=== PATIENT | male | born 1960 | race Hispanic/Latino ===

== ENCOUNTER 2019-10-01 13:38 | Inpatient (IN) | payer MEDICARE ==
--- NOTE | 2019-10-01 13:50 | Event Note ---
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 This initial assessment/diagnostic orders/clinical plan/treatment(s) is/are subject to change based on patients health status, clinical progression and re- assessment by fellow clinical providers in the ED. Further treatment and workup at subsequent clinical providers discretion. Patient/guardian urged not to elope from the ED as their condition may be serious if not clinically assessed and managed. Initial orders include:
[2019-10-01] MEDS ORDERED: METOPROLOL TARTRATE 5 MG/5 ML INJ IV ONE (13:58)
[2019-10-01] MEDS ORDERED: ASPIRIN 81 MG TAB CHEW PO ONE (13:58)
[2019-10-01 14:26] LABS: Basophils # (Auto) 0.1 K/mm3 (0.0-0.1); Eosinophils # (Auto) 0.1 K/mm3 (0.0-0.4); Eosinophils % (Auto) 0.8 % (0.0-4.3); Monocytes # (Auto) 0.7 K/mm3 (0.0-0.8); Monocytes % (Auto) 9.8 % (0.0-7.3)
--- NOTE | 2019-10-01 14:30 | XRay Report ---
CHEST 1 VIEW INDICATION: chest discomfort. COMPARISON: None available. FINDINGS: Support devices: None. Heart: Enlarged. Pulmonary vasculature: Central vascular congestion. Lungs/Pleura: Widening of the left pleural space and mild opacification of the left costophrenic angl e. The left upper lobe is clear and the right lung is clear. Additional findings: Median sternotomy wires and mediastinal surgical clips. IMPRESSION: 1. Cardiomegaly and pulmonary venous hypertension. 2. No pulmonary edema. 3. No pneumonia. 4. Left pleural effusion versus scarring. Recommend PA and lateral chest for further evaluation 5. Status post CABG. Signer Name: Kodak Sen MD Signed: 10/01/2019 2:25 PM Workstation Name: [id number]
[2019-10-01 14:31] LABS: Basophils % (Auto) 0.5 % (0.0-1.8); Hematocrit 40.2 % (35.5-45.6); Hemoglobin 14.3 gm/dl (11.8-15.2); Lymphocytes % (Auto) 14.4 % (13.4-35.0); Mean Corpuscular HGB Conc 36 % (32-34); Mean Corpuscular Volume 102 fl (84-94); Red Blood Count 3.94 M/mm3 (3.65-5.03); Red Cell Distribution Width 16.3 % (13.2-15.2)
[2019-10-01 14:33] LABS: Platelet Count 292 K/mm3 (140-440)
[2019-10-01 15:31] LABS: INR 1.17 (0.87-1.13)
[2019-10-01 15:31] LABS: Albumin 2.3 g/dL (3.9-5); Calcium 7.7 mg/dL (8.4-10.2)
--- NOTE | 2019-10-01 15:33 | Emergency Department Report ---
ED Palpitations HPI - General Chief Complaint: Arrhythmia/Palpitations Stated Complaint: SENT BY PCP/SOB Time Seen by Provider: 10/01/19 13:42 Source: patient Mode of arrival: Ambulatory Limitations: No Limitations - History of Present Illness Initial Comments: Patient sent from his [facility] office, Dr. Dickerson, where he had an abnormal EKG. Reports some dyspnea on exertion today. Denies pain. Reports he went to the [facility] today for routine testing. MD Complaint: palpitations -: Gradual, days(s) (1) Context: occured during rest Arrythmia History: other (Reports hx of a rapid heart beat) Associated Symptoms: shortness of breath. denies: chest pain, syncope, near- syncope, nausea/vomiting, anxiety, diaphoresis, cough, parasthesias, feeling of impending doom, muscle cramps - Related Data Home Medications Medication Instructions Recorded Confirmed Last Taken Aspirin 81 mg PO DAILY 10/01/19 10/01/19 Unknown Bisoprolol/Hctz 25 mg PO DAILY 10/01/19 10/01/19 Unknown Lasix TAB 40 mg PO BID 10/01/19 10/01/19 Unknown Metolazone 5 mg PO DAILY 10/01/19 10/01/19 Unknown Plavix 75 mg PO DAILY 10/01/19 10/01/19 Unknown Potassium Chloride 20 meq PO BID 10/01/19 10/01/19 Unknown Prednisone 20 mg PO DAILY 10/01/19 10/01/19 Unknown Verapamil 120 mg PO BID 10/01/19 10/01/19 Unknown Allergies Allergy/AdvReac Type Severity Reaction Status Date / Time No Known Allergies Allergy Verified 10/01/19 13:39 ED Review of Systems ROS: Stated complaint: SENT BY PCP/SOB Other details as noted in HPI Other: GENERAL: No weight change, fatigue, fever, chills, or night sweats SKIN: No changes in skin or hair, no itching, no rashes, no jaundice HEAD: No trauma EYES: No blurriness, tearing, itching, acute visual loss, conjunctival discoloration, or scleral icterus EARS: No hearing loss, tinnitus, vertigo, or earache NOSE: No rhinorrhea, stuffiness, sneezing, itching, or epistaxis MOUTH: No bleeding gums, hoarseness, sore throat, or swelling CARDIAC: Palpitations. No new murmur, chest pain, dyspnea on exertion, orthopnea, PND, or edema RESPIRATORY: Shortness of breath. No wheeze, cough, sputum production, hemoptysis GI: No abdominal pain, nausea, vomiting, dysphagia, diarrhea, constipation, hematemesis, melena, hematochezia URINARY: No frequency, urgency, polyuria, dysuria, hematuria, or incontinence MUSCULOSKELETAL: No muscle weakness, joint stiffness, decrease in range of motion, redness, swelling NEUROLOGIC: No headache, syncope, loss of sensation, numbness, tingling, tremors, weakness, paralysis, seizures HEMATOLOGIC: No anemia, easy bruising, bleeding, petechiae, or purpura ENDOCRINE: No hot or cold intolerance, sweating, polyuria, polydipsia or, polyphagia no thyroid problems PSYCHIATRIC: No change in mood, no anxiety, no depression ED Past Medical Hx - Past Medical History Hx Heart Attack/AMI: Yes Hx Congestive Heart Failure: Yes Hx Diabetes: No Hx Pulmonary Embolism: No Hx Sickle Cell Disease: No Hx Asthma: No Hx COPD: No Hx Tuberculosis: No Hx HIV: No Additional medical history: MVP - Surgical History Hx Open Heart Surgery: Yes - Social History Smoking Status: Current Every Day Smoker Substance Use Type: Marijuana - Medications Home Medications: Home Medications Medication Instructions Recorded Confirmed Last Taken Type Aspirin 81 mg PO DAILY 10/01/19 10/01/19 Unknown History Bisoprolol/Hctz 25 mg PO DAILY 10/01/19 10/01/19 Unknown History Lasix TAB 40 mg PO BID 10/01/19 10/01/19 Unknown History Metolazone 5 mg PO DAILY 10/01/19 10/01/19 Unknown History Plavix 75 mg PO DAILY 10/01/19 10/01/19 Unknown History Potassium Chloride 20 meq PO BID 10/01/19 10/01/19 Unknown History Prednisone 20 mg PO DAILY 10/01/19 10/01/19 Unknown History Verapamil 120 mg PO BID 10/01/19 10/01/19 Unknown History ED Physical Exam - General Limitations: No Limitations - Other Other exam information: GENERAL: Patient in no acute distress HEAD: Normocephalic, atraumatic EYES: PERRLA, EOM intact, no scleral icterus, no conjunctival hemorrhage, visual mcrae and acuity wnl NOSE: No tenderness, discharge, sinus tenderness MOUTH: No erythema, bleeding, exudate HEART: Tachycardia irregular irregular, no murmur, S1-S2 are auscultated, no edema, pulses are symmetric LUNGS: Mild bibasilar rales. No respiratory distress. Bilateral breath sounds, No tachypnea, No retractions, No wheezing, rhonchi ABDOMEN: Mild abdominal distention. Normal bowel sounds, abdomen soft, no tenderness, no rebound, no guarding, no masses, no CVA tenderness MUSCULOSKELETAL: Normal joint range of motion, no redness, no swelling, no tenderness NEUROLOGIC: GCS 15, Alert and Oriented x3, Cranial nerves intact, normal sensation, normal strength, no cerebellar deficit, NIHSS 0 SKIN: Skin is warm and dry, no wounds, no rashes ED Course Vital Signs 10/01/19 10/01/19 10/01/19 13:43 14:08 14:23 Temperature 97.5 F L Pulse Rate 52 L 130 H 100 H Respiratory 16 16 Rate Blood Pressure 120/28 Blood Pressure 116/86 [Left] O2 Sat by Pulse 99 98 Oximetry 10/01/19 15:53 Temperature Pulse Rate 99 H Respiratory 16 Rate Blood Pressure Blood Pressure 112/71 [Left] O2 Sat by Pulse 96 Oximetry ED Medical Decision Making - Lab Data Result diagrams: 10/01/19 14:00 10/01/19 14:00 Laboratory Results - last 24 hr 10/01/19 10/01/19 10/01/19 14:00 14:00 14:00 WBC 7.2 RBC 3.94 Hgb 14.3 Hct 40.2 MCV 102 H MCH 36 H MCHC 36 H RDW 16.3 H Plt Count 292 Lymph % (Auto) 14.4 [place] % (Auto) 9.8 H Eos % (Auto) 0.8 Baso % (Auto) 0.5 Lymph # 1.0 L [place] # 0.7 Eos # 0.1 Baso # 0.1 Seg Neutrophils % 74.3 H Seg Neutrophils # 5.6 PT INR APTT D-Dimer Sodium 129 L Potassium 3.0 L Chloride 91.4 L Carbon Dioxide 22 Anion Gap 19 BUN 14 Creatinine 1.5 Estimated GFR 48 BUN/Creatinine Ratio 9 Glucose 108 H Calcium 7.7 L Magnesium 1.40 L Total Bilirubin 2.20 H AST 44 H ALT 13 Alkaline Phosphatase 74 Troponin T < 0.010 NT-Pro-B Natriuret Pep Total Protein 7.8 Albumin 2.3 L Albumin/Globulin Ratio 0.4 10/01/19 10/01/19 14:43 14:47 WBC RBC Hgb Hct MCV MCH MCHC RDW Plt Count Lymph % (Auto) [place] % (Auto) Eos % (Auto) Baso % (Auto) Lymph # [place] # Eos # Baso # Seg Neutrophils % Seg Neutrophils # PT 15.1 H INR 1.17 H APTT 23.4 L D-Dimer 6237.39 H Sodium Potassium Chloride Carbon Dioxide Anion Gap BUN Creatinine Estimated GFR BUN/Creatinine Ratio Glucose Calcium Magnesium Total Bilirubin AST ALT Alkaline Phosphatase Troponin T NT-Pro-B Natriuret Pep 2019 H Total Protein Albumin Albumin/Globulin Ratio - EKG Data When compared to previous EKG there are: changes noted Interpretation: other (A Fib with RVR) - Radiology Data Radiology results: report reviewed - Medical Decision Making Patient comfortable. Reports symptom improvement. Updated with results. Plan admit for further evaluation. Hospitalist updated and accepts admission. Critical care attestation.: If time is entered above; I have spent that time in minutes in the direct care of this critically ill patient, excluding procedure time. ED Disposition Clinical Impression: Atrial fibrillation with rapid ventricular response, Hypokalemia, Hypomagnesemia CHF exacerbation Qualifiers: Heart failure type: unspecified Qualified Code(s): I50.9 - Heart failure, unspecified Disposition: -09 OP ADMIT IP TO THIS HOSP Is pt being admited?: Yes Condition: Stable
[2019-10-01] MEDS ORDERED: FUROSEMIDE 40 MG/4 ML INJ IV ONE (15:39)
[2019-10-01] MEDS ORDERED: POTASSIUM CHLORIDE ER 20 MEQ TAB PO ONE (15:39)
[2019-10-01 15:55] LABS: Partial Thromboplastin Time 23.4 Sec. (24.2-36.6)
--- NOTE | 2019-10-01 16:07 | Event Note ---
Date: 10/01/19 Patient was seen in our office today, as an initial visit, with complaints of shortness of breath. He was found to be in rapid atrial fibrillation and was referred to the emergency department for rate control and oral anticoagulation. Please refer to our office note.
[2019-10-01] MEDS ORDERED: ENOXAPARIN 100 MG/1 ML INJ SUB-Q ONE (16:18)
[2019-10-01] MEDS ORDERED: dilTIAZem 25 MG/5 ML INJ ONE (18:10)
[2019-10-01] MEDS ORDERED: dilTIAZem 25 MG/5 ML INJ IV ONE (18:12)
[2019-10-01] MEDS ORDERED: ONDANSETRON 4 MG/2 ML INJ IV PRN (18:40)
[2019-10-01] MEDS ORDERED: ALBUTEROL 2.5 MG/3 ML NEBU IH PRN (18:40)
[2019-10-01] MEDS ORDERED: ACETAMINOPHEN 325 MG TAB PO PRN (18:40)
--- NOTE | 2019-10-01 18:42 | History and Physical Report ---
History of Present Illness Chief complaint: My heart was pounding History of present illness: 58 YO Male with UT, CHF, MVP on DAPT, Nicotine Dependence, Obesity presents to ED for evaluation. Pt states that he has experienced chest palpitations, dypsnea on exertion, and shortness of breath over the past 1 day. Pt acknowledges Decreased exercise tolerance, Orthopnea/PND, and dypsnea at rest. Pt was seen and evaluated by his telehealth nurse today and was found to have new onset Atrial Fib with RVR. Pt instructed to seek further care at [facility]. Pt transported to [facility] via private vehicle. Pt seen and evaluated in ED and found to have Atrial Fib with RVR as well as symptoms consistent with Diastolic CHF. Pt treated with Cardizem with improvement in heart rate. Pt denies fever, chills, CP, NVD, Trauma, unintentional weight loss, night sweats, productive cough, skin rash or recent ill contacts. Cardiology consulted in ED. Prior admission on 09/23/14 reviewed. All medication listed at time of admission has been reconciled. Pt placed in observation status and admitted to telemetry. Past History Past Medical History: heart failure, other (see HPI) Past Surgical History: Other (Cardiac surgery) Social history: single, smoking. denies: alcohol abuse, prescription drug abuse Family history: CAD, hypertension Medications and Allergies Allergies Allergy/AdvReac Type Severity Reaction Status Date / Time No Known Allergies Allergy Verified 10/01/19 13:39 Home Medications Medication Instructions Recorded Confirmed Last Taken Type Aspirin 81 mg PO DAILY 10/01/19 10/01/19 Unknown History Bisoprolol/Hctz 25 mg PO DAILY 10/01/19 10/01/19 Unknown History Lasix TAB 40 mg PO BID 10/01/19 10/01/19 Unknown History Metolazone 5 mg PO DAILY 10/01/19 10/01/19 Unknown History Plavix 75 mg PO DAILY 10/01/19 10/01/19 Unknown History Potassium Chloride 20 meq PO BID 10/01/19 10/01/19 Unknown History Prednisone 20 mg PO DAILY 10/01/19 10/01/19 Unknown History Verapamil 120 mg PO BID 10/01/19 10/01/19 Unknown History Active Meds: Active Medications Acetaminophen (Tylenol) 650 mg PO Q4H PRN PRN Reason: Pain MILD(1-3)/Fever >100.5/[place] Albuterol (Proventil) 2.5 mg IH Q4HRT PRN PRN Reason: Shortness Of Breath Ondansetron HCl (Zofran) 4 mg IV Q8H PRN PRN Reason: Nausea And Vomiting Sodium Chloride (Sodium Chloride Flush Syringe 10 Ml) 10 ml IV BID IMANI Sodium Chloride (Sodium Chloride Flush Syringe 10 Ml) 10 ml IV PRN PRN PRN Reason: LINE FLUSH Review of Systems Constitutional: no weight loss, no weight gain, no fever, no chills Ears, nose, mouth and throat: no ear pain, no ear discharge, no tinnitis, no decreased hearing, no nose pain, no nasal congestion Cardiovascular: palpitations, rapid/irregular heart beat, shortness of breath, dyspnea on exertion, decreased exercise tolerance, no chest pain, no claudication, no phlebitis Respiratory: shortness of breath, dyspnea on exertion, no cough, no cough with sputum, no excessive sputum, no hemoptysis Gastrointestinal: no nausea, no vomiting, no diarrhea, no constipation Genitourinary Male: no flank pain, no discharge, no urinary frequency, no urinary hesitancy, no nocturia, no incontinence Rectal: no pain, no incontinence, no bleeding Musculoskeletal: no neck stiffness, no shooting arm pain, no arm numbness/tingling Integumentary: no rash, no pruritis, no redness, no sores, no wounds Neurological: no transient paralysis, no paralysis, no weakness, no parathesias, no numbness, no tingling, no seizures Psychiatric: no memory loss, no change in sleep habits, no hypersomnia, no change in appetite Endocrine: no cold intolerance, no polyphagia, no excessive thirst, no polydipsia, no polyuria Hematologic/Lymphatic: no easy bruising, no easy bleeding, no lymphadenopathy, no lymphedema Allergic/Immunologic: no allergic rhinitis, no persistent infections Exam - Constitutional Vitals: Temp Pulse Resp BP Pulse Ox 97.5 F L 81 16 111/87 96 10/01/19 13:43 10/01/19 18:14 10/01/19 18:14 10/01/19 18:14 10/01/19 18:14 General appearance: Present: mild distress - EENT Eyes: Present: PERRL ENT: hearing intact, clear oral mucosa - Neck Neck: Present: supple, normal ROM - Respiratory Respiratory effort: normal Respiratory: bilateral: diminished, rhonchi - Cardiovascular Heart Sounds: Present: S1 & S2. Absent: rub, click - Extremities Extremities: pulses symmetrical Extremity abnormal: edema Peripheral Pulses: within normal limits - Abdominal General gastrointestinal: Present: soft, non-tender, non-distended, normal bowel sounds Male genitourinary: Present: normal - Integumentary Integumentary: Present: clear, warm, dry - Musculoskeletal Musculoskeletal: generalized weakness - Psychiatric Psychiatric: appropriate mood/affect, intact judgment & insight - Neurologic Neurologic: CNII-XII intact, moves all extremities Results - Labs CBC & Chem 7: 10/01/19 14:00 10/01/19 14:00 Labs: Abnormal lab results 10/01/19 10/01/19 10/01/19 Range/Units 14:00 14:00 14:43 MCV 102 H (84-94) fl MCH 36 H (28-32) pg MCHC 36 H (32-34) % RDW 16.3 H (13.2-15.2) % [place] % (Auto) 9.8 H (0.0-7.3) % Lymph # 1.0 L (1.2-5.4) K/mm3 Seg Neutrophils % 74.3 H (40.0-70.0) % PT (12.2-14.9) Sec. INR (0.87-1.13) APTT (24.2-36.6) Sec. D-Dimer (0-234) ng/mlDDU Sodium 129 L (137-145) mmol/L Potassium 3.0 L (3.6-5.0) mmol/L Chloride 91.4 L (98-107) mmol/L Glucose 108 H (75-100) mg/dL Calcium 7.7 L (8.4-10.2) mg/dL Magnesium 1.40 L (1.7-2.3) mg/dL Total Bilirubin 2.20 H (0.1-1.2) mg/dL AST 44 H (5-40) units/L NT-Pro-B Natriuret Pep 2019 H (0-900) pg/mL Albumin 2.3 L (3.9-5) g/dL 10/01/19 Range/Units 14:47 MCV (84-94) fl MCH (28-32) pg MCHC (32-34) % RDW (13.2-15.2) % [place] % (Auto) (0.0-7.3) % Lymph # (1.2-5.4) K/mm3 Seg Neutrophils % (40.0-70.0) % PT 15.1 H (12.2-14.9) Sec. INR 1.17 H (0.87-1.13) APTT 23.4 L (24.2-36.6) Sec. D-Dimer 6237.39 H (0-234) ng/mlDDU Sodium (137-145) mmol/L Potassium (3.6-5.0) mmol/L Chloride (98-107) mmol/L Glucose (75-100) mg/dL Calcium (8.4-10.2) mg/dL Magnesium (1.7-2.3) mg/dL Total Bilirubin (0.1-1.2) mg/dL AST (5-40) units/L NT-Pro-B Natriuret Pep (0-900) pg/mL Albumin (3.9-5) g/dL Assessment and Plan - Patient Problems (1) Atrial fibrillation with rapid ventricular response Current Visit: Yes Status: Acute Plan to address problem: Rate control with cardizem, thyroid panel, supportive care, admit to telemetry, echo, cardiology consulted, (2) CHF exacerbation Current Visit: Yes Status: Acute Qualifiers: Heart failure type: systolic Qualified Code(s): I50.23 - Acute on chronic systolic (congestive) heart failure Plan to address problem: Admit to telemtry, Cardiology consulted in ED, thyroid panel, magnesium level, BNP, strict I/O, daily weight, monitor uop q shift, chest x ray, supplemental oxygen, pulse oximetry, d dimer (3) Nicotine dependence Current Visit: Yes Status: Acute Qualifiers: Substance use status: in withdrawal Plan to address problem: Smoking cessation counseling, +15min, supportive care. (4) MVP (mitral valve prolapse) Current Visit: Yes Status: Acute Plan to address problem: Echo pending at time of admission, cardiology consulted in ED, (5) DVT prophylaxis Current Visit: No Status: Acute Plan to address problem: SCD to BLE while in bed,
[2019-10-01 21:15] LABS: Free T4 (Free Thyroxine) 1.38 ng/dL (0.76-1.46)
--- NOTE | 2019-10-01 21:57 | Nuclear Medicine Report ---
NUCLEAR MEDICINE PERFUSION LUNG SCAN INDICATION / CLINICAL INFORMATION: Dyspnea. TECHNIQUE: 3.0 mCi of Tc-99m MAA were given by IV. COMPARISON: Chest radiograph dated 10/01/2019. FINDINGS: PERFUSION: Normal perfusion throughout the right lung and the upper portion of the left lung. Photope mayra area at the left lung base corresponds to the left retrocardiac pulmonary opacity showing radiogr aphically. ADDITIONAL FINDINGS: None. IMPRESSION: 1. Low probability for pulmonary embolism. Perfusion defect at the left lung base corresponds to area of radiographic abnormality. Signer Name: Abdi Donald MD Signed: 10/01/2019 9:53 PM Workstation Name: [id number]
[2019-10-01] MEDS: dilTIAZem 30 MG TAB PO SCH (23:30)
[2019-10-02] MEDS: dilTIAZem 30 MG TAB PO SCH (05:03)
[2019-10-02 05:59] LABS: Calcium 7.3 mg/dL (8.4-10.2)
--- NOTE | 2019-10-02 11:27 | Progress Note ---
Assessment and Plan Acute heart failure, predominantly right sided Bioprosthetic mitral valve prosthesis (2014) with a mean gradient 4-6 mm Hg, MVA 1.41 cm2 by PHT and a MVVTI/LVOT VTI ratio of 2.5 Moderate aortic regurgitation Moderate to severe TR with elevated RVSP and pulmonary hypertension, as well as RV dysfunction Persistent atrial fibrillation Ascites on exam Left lung basilar crackles and infiltrates noted on CXR Recommendations: Start IV heparin for throboembolism prophylaxis Obtain CT chest without contrast to evaluate asymmetric left lower lobe infiltrates/effusion Change diltiazem to metoprolol XL 50 mg po bid given cardiomyopathy Obtain US abdomen to evaluate extent of ascites and see if a paracentesis is needed A LUIS is eventually warranted to further evaluate restrictive doppler findings through the MV prosthesis (this can be performed as outpatient once afib is rate controlled) Subjective Date of service: 10/02/19 Principal diagnosis: CHF and atrial fibrillation Interval history: Patient was seen this morning in the echo lab He has no complaints Tele is showing afib with RVR, HR 100-120 Objective Vital Signs Temp Pulse Resp BP BP Pulse Ox 10/02/19 08:34 97.9 F 59 L 18 101/69 97 10/02/19 07:00 102 H 10/02/19 04:38 98.7 F 65 18 105/71 97 10/02/19 01:03 98.5 F 10/02/19 01:02 55 L 18 104/74 97 10/01/19 23:42 96 10/01/19 23:32 110 H 10/01/19 23:00 18 10/01/19 21:01 97.8 F 70 16 122/81 92 10/01/19 20:00 98.6 F 89 18 126/88 96 10/01/19 19:10 94 H 13 102/69 97 10/01/19 19:00 90 23 105/68 96 10/01/19 18:50 90 20 105/68 93 10/01/19 18:40 88 19 100/51 96 10/01/19 18:30 83 14 100/51 99 10/01/19 18:20 81 15 92/61 98 10/01/19 18:14 81 16 111/87 96 10/01/19 18:13 81 111/87 10/01/19 18:10 113 H 21 111/87 95 10/01/19 18:00 123 H 18 111/87 97 10/01/19 17:50 114 H 16 101/66 88 10/01/19 17:48 130 H 16 101/66 95 10/01/19 17:40 112 H 112/71 95 10/01/19 17:37 120 H 16 100/70 94 10/01/19 15:53 99 H 16 112/71 96 10/01/19 15:50 98 H 21 112/71 98 10/01/19 15:40 109 H 22 101/71 98 10/01/19 15:30 100 H 26 H 101/71 95 10/01/19 15:20 97 H 18 105/74 98 10/01/19 15:10 103 H 16 114/73 93 10/01/19 15:00 100 H 25 H 114/73 98 10/01/19 14:50 110 H 20 110/64 96 10/01/19 14:40 104 H 24 110/83 92 10/01/19 14:30 110 H 18 110/83 94 10/01/19 14:23 100 H 16 116/86 98 10/01/19 14:20 117 H 23 116/86 96 10/01/19 14:10 120 H 21 122/75 98 10/01/19 14:08 130 H 10/01/19 14:00 143 H 26 H 122/75 10/01/19 13:57 148 H 31 H 10/01/19 13:43 97.5 F L 52 L 16 120/28 99 - Physical Examination Neck: Positive: JVD/HJR Cardiac: Positive: irregularly irregular, Tachycardia Lungs: Positive: Decreased Breath Sounds Neuro: Positive: Grossly Intact Abdomen: Positive: Ascites, Distended Extremities: Present: normal - Labs and Meds Cardiac Enzymes 10/01/19 Range/Units 14:00 AST 44 H (5-40) units/L Coagulation 10/01/19 Range/Units 14:47 PT 15.1 H (12.2-14.9) Sec. INR 1.17 H (0.87-1.13) APTT 23.4 L (24.2-36.6) Sec. CBC 10/01/19 Range/Units 14:00 WBC 7.2 (4.5-11.0) K/mm3 RBC 3.94 (3.65-5.03) M/mm3 Hgb 14.3 (11.8-15.2) gm/dl Hct 40.2 (35.5-45.6) % Plt Count 292 (140-440) K/mm3 Lymph # 1.0 L (1.2-5.4) K/mm3 [place] # 0.7 (0.0-0.8) K/mm3 Eos # 0.1 (0.0-0.4) K/mm3 Baso # 0.1 (0.0-0.1) K/mm3 Comprehensive Metabolic Panel 10/01/19 10/02/19 Range/Units 14:00 05:21 Sodium 129 L 135 L (137-145) mmol/L Potassium 3.0 L 3.4 L (3.6-5.0) mmol/L Chloride 91.4 L 95.4 L (98-107) mmol/L Carbon Dioxide 22 30 D (22-30) mmol/L BUN 14 18 (9-20) mg/dL Creatinine 1.5 1.4 (0.8-1.5) mg/dL Glucose 108 H 91 (75-100) mg/dL Calcium 7.7 L 7.3 L (8.4-10.2) mg/dL AST 44 H (5-40) units/L ALT 13 (7-56) units/L Alkaline Phosphatase 74 (35-129) units/L Total Protein 7.8 (6.3-8.2) g/dL Albumin 2.3 L (3.9-5) g/dL
[2019-10-02] MEDS ORDERED: HEPARIN 10,000 UNITS/10 ML VIAL IV ONE (11:28)
[2019-10-02] MEDS ORDERED: FLU VACC QUAD 2019-20 (3 YR UP)/PF 60 MCG/0.5 ML SYRINGE IM ONE (12:00)
[2019-10-02] MEDS: HEPARIN/ 0.45% NACL DRIP 25,000 UNIT/500 ML BAG IV SCH (12:16)
[2019-10-02] MEDS: POTASSIUM CHLORIDE ER 20 MEQ TAB PO SCH (12:16)
[2019-10-02] MEDS: FUROSEMIDE 40 MG/4 ML INJ IV SCH (12:17)
[2019-10-02] MEDS: METOPROLOL SUCCINATE XL 50 MG TAB PO SCH ×2 (12:17→23:52)
--- NOTE | 2019-10-02 18:38 | Ultrasound Report ---
ULTRASOUND ABDOMEN, COMPLETE INDICATION: Ascites. Abnormal liver function tests. COMPARISON: No relevant prior imaging study available. FINDINGS: Pancreas: No significant abnormality. Abdominal Aorta: No significant abnormality. IVC: No significant abnormality. Liver: Hepatic echogenicity is increased and there is a lobulated superficial contour suggesting cirr hosis.. Gallbladder: Multiple gallstones. Bile ducts: No significant abnormality. Common bile duct measures 5 mm. Kidneys: Right: Right nephrolithiasis without hydronephrosis. Left : Left nephrolithiasis without hyd ronephrosis. Spleen: No significant abnormality. Free fluid: Moderate abdominal ascites. Additional Findings: None. IMPRESSION: 1. Cholelithiasis. 2. Changes in the liver that suggests fatty infiltration and cirrhosis. 3. Bilateral nephrolithiasis, no hydronephrosis. 4. Ascites, moderate in amount. Signer Name: Lawrence Simon MD Signed: 10/02/2019 6:34 PM Workstation Name: [id number]
--- NOTE | 2019-10-02 19:24 | Progress Note ---
Assessment and Plan Assessment and plan: -- Atrial fibrillation with rapid ventricular response Current Visit: Yes Status: Acute Rate control with cardizem, heparin drip Beta-blockers, follow echocardiogram Thyroid function tests normal -- CHF exacerbation Current Visit: Yes Status: Acute Anti-failure medications, follow echocardiogram Input output monitoring, low-sodium diet Fluid restriction -- Nicotine dependence Current Visit: Yes Status: Acute Smoking cessation counseling, +15min, Nicotine patch as needed --Bioprosthetic mitral valve Current Visit: Yes Status: Acute Echo pending at time of admission, cardiology consulted in ED, -- DVT prophylaxis Current Visit: No Status: Acute SCD to BLE while in bed, History Interval history: Patient seen and examined medical records reviewed Patient was admitted with Catherine kaur with rapid ventricular rate Now rate controlled. Patient complains of mild shortness of breath Denies chest pain Vital signs reviewed Hospitalist Physical - Constitutional Vitals: Temp Pulse Resp BP Pulse Ox 98.3 F 110 H 16 104/78 94 10/02/19 12:04 10/02/19 17:20 10/02/19 12:04 10/02/19 17:13 10/02/19 17:13 General appearance: Present: mild distress, well-nourished - EENT Eyes: Present: PERRL, EOM intact - Neck Neck: Present: supple, normal ROM - Respiratory Respiratory effort: normal Respiratory: bilateral: diminished, negative: rales, rhonchi, wheezing - Cardiovascular Rhythm: regular Heart Sounds: Present: S1 & S2 - Extremities Extremities: no ischemia, No edema - Abdominal General gastrointestinal: soft, non-tender, non-distended, normal bowel sounds - Integumentary Integumentary: Present: clear, warm - Psychiatric Psychiatric: appropriate mood/affect, cooperative - Neurologic Neurologic: CNII-XII intact, moves all extremities Results - Labs CBC & Chem 7: 10/01/19 14:00 10/02/19 05:21 Labs: Laboratory Last Values WBC 7.2 K/mm3 (4.5-11.0) 10/01/19 14:00 RBC 3.94 M/mm3 (3.65-5.03) 10/01/19 14:00 Hgb 14.3 gm/dl (11.8-15.2) 10/01/19 14:00 Hct 40.2 % (35.5-45.6) 10/01/19 14:00 MCV 102 fl (84-94) H 10/01/19 14:00 MCH 36 pg (28-32) H 10/01/19 14:00 MCHC 36 % (32-34) H 10/01/19 14:00 RDW 16.3 % (13.2-15.2) H 10/01/19 14:00 Plt Count 292 K/mm3 (140-440) 10/01/19 14:00 Lymph % (Auto) 14.4 % (13.4-35.0) 10/01/19 14:00 [place] % (Auto) 9.8 % (0.0-7.3) H 10/01/19 14:00 Eos % (Auto) 0.8 % (0.0-4.3) 10/01/19 14:00 Baso % (Auto) 0.5 % (0.0-1.8) 10/01/19 14:00 Lymph # 1.0 K/mm3 (1.2-5.4) L 10/01/19 14:00 [place] # 0.7 K/mm3 (0.0-0.8) 10/01/19 14:00 Eos # 0.1 K/mm3 (0.0-0.4) 10/01/19 14:00 Baso # 0.1 K/mm3 (0.0-0.1) 10/01/19 14:00 Seg Neutrophils % 74.3 % (40.0-70.0) H 10/01/19 14:00 Seg Neutrophils # 5.6 K/mm3 (1.8-7.7) 10/01/19 14:00 PT 15.1 Sec. (12.2-14.9) H 10/01/19 14:47 INR 1.17 (0.87-1.13) H 10/01/19 14:47 APTT 23.4 Sec. (24.2-36.6) L 10/01/19 14:47 D-Dimer 6237.39 ng/mlDDU (0-234) H 10/01/19 14:47 Heparin Anti-Xa Level 0.48 U.I./ml (0.3-0.7) 10/02/19 16:53 Sodium 135 mmol/L (137-145) L 10/02/19 05:21 Potassium 3.4 mmol/L (3.6-5.0) L 10/02/19 05:21 Chloride 95.4 mmol/L (98-107) L 10/02/19 05:21 Carbon Dioxide 30 mmol/L (22-30) D 10/02/19 05:21 Anion Gap 13 mmol/L 10/02/19 05:21 BUN 18 mg/dL (9-20) 10/02/19 05:21 Creatinine 1.4 mg/dL (0.8-1.5) 10/02/19 05:21 Estimated GFR 52 ml/min 10/02/19 05:21 BUN/Creatinine Ratio 13 % 10/02/19 05:21 Glucose 91 mg/dL (75-100) 10/02/19 05:21 Calcium 7.3 mg/dL (8.4-10.2) L 10/02/19 05:21 Magnesium 1.40 mg/dL (1.7-2.3) L 10/01/19 14:00 Total Bilirubin 2.20 mg/dL (0.1-1.2) H 10/01/19 14:00 AST 44 units/L (5-40) H 10/01/19 14:00 ALT 13 units/L (7-56) 10/01/19 14:00 Alkaline Phosphatase 74 units/L (35-129) 10/01/19 14:00 Troponin T < 0.010 ng/mL (0.00-0.029) 10/01/19 14:00 NT-Pro-B Natriuret Pep 2019 pg/mL (0-900) H 10/01/19 14:43 Total Protein 7.8 g/dL (6.3-8.2) 10/01/19 14:00 Albumin 2.3 g/dL (3.9-5) L 10/01/19 14:00 Albumin/Globulin Ratio 0.4 % 10/01/19 14:00 TSH 2.970 mlU/mL (0.270-4.200) 10/01/19 20:18 Free T4 1.38 ng/dL (0.76-1.46) 10/01/19 20:18 Active Medications - Current Medications Current Medications: Generic Name Dose Route Start Last Admin Trade Name Freq PRN Reason Stop Dose Admin Acetaminophen 650 mg 12/12/19 18:40 Tylenol PO Q4H PRN Pain MILD(1-3)/Fever >100.5/HURTADO Albuterol 2.5 mg 10/01/19 18:40 Proventil IH Q4HRT PRN Shortness Of Breath Furosemide 40 mg 10/02/19 12:00 10/02/19 12:17 Lasix IV 40 mg QDAY IMANI Administration Heparin Sodium/Sodium Chloride 25,000 unit in 500 mls @ 26 mls/hr 10/02/19 12:00 10/02/19 18:33 Heparin/ 0.45% Nacl-25,000 Unit/500 Ml IV 1,300 units/hr TITR IMANI 26 mls/hr Titration Protocol 1,300 UNITS/HR Metoprolol Succinate 50 mg 10/02/19 12:00 10/02/19 12:17 Metoprolol Xl PO 50 mg Q12H IMANI Administration Ondansetron HCl 4 mg 10/01/19 18:40 Zofran IV Q8H PRN Nausea And Vomiting Pneumococcal Polyvalent Vaccine 0.5 ml 10/03/19 12:00 Pneumovax 23 IM 10/03/19 12:01 .ONCE ONE Potassium Chloride 40 meq 10/02/19 12:00 10/02/19 12:16 K-Dur PO 10/04/19 10:01 40 meq QDAY IMANI Administration Sodium Chloride 10 ml 10/01/19 22:00 10/02/19 12:47 Sodium Chloride Flush Syringe 10 Ml IV 10 ml BID IMANI Administration Sodium Chloride 10 ml 10/01/19 18:40 Sodium Chloride Flush Syringe 10 Ml IV PRN PRN LINE FLUSH
[2019-10-03 06:04] LABS: BUN/Creatinine Ratio 15; Blood Urea Nitrogen 17 mg/dL (9-20); Calcium 7.3 mg/dL (8.4-10.2); Hemolysis Index 5
[2019-10-03] MEDS: HEPARIN/ 0.45% NACL DRIP 25,000 UNIT/500 ML BAG IV SCH (06:06)
[2019-10-03] MEDS: FUROSEMIDE 40 MG/4 ML INJ IV SCH (09:44)
[2019-10-03] MEDS: POTASSIUM CHLORIDE ER 20 MEQ TAB PO SCH (09:44)
--- NOTE | 2019-10-03 10:18 | Progress Note ---
Assessment and Plan 1. Chronic combined systolic and diastolic heart failure 2. Dilated cardiomyopathy left ventricular ejection fraction 15-20% 3. Bioprosthetic mitral follows sitting well with normal function 4. Chronic atrial fibrillation with controlled ventricular response Plan. Cardiac-minor stable continue present medication with anticoagulation. Telemetriy strips reveal ventricular rates is controlled. Subjective Date of service: 10/03/19 Principal diagnosis: CHF and atrial fibrillation Interval history: No cardiac symptoms Objective Vital Signs Temp Pulse Resp BP BP Pulse Ox 10/03/19 08:31 98.5 F 70 18 103/69 96 10/03/19 05:30 98.6 F 78 16 96/73 94 10/03/19 01:00 92 H 10/02/19 23:52 114 H 10/02/19 23:36 98.6 F 62 24 100/58 97 10/02/19 22:54 99 10/02/19 21:00 18 10/02/19 19:35 98.3 F 64 16 97/68 95 10/02/19 17:20 110 H 10/02/19 17:13 124 H 104/78 94 10/02/19 12:04 98.3 F 76 16 112/82 95 - Physical Examination General: Appears Well, No Apparent Distress HEENT: Positive: PERRL, Normocephaly, Mucus Membranes Moist Neck: Positive: neck supple, trachea midline. Negative: JVD/HJR Cardiac: Positive: irregularly irregular, S1/S2, S3, PMI, Dilated, Laterally D isplaced Lungs: Positive: clear to auscultation, No Wheeze, Rales, Rhonchi Neuro: Positive: Grossly Intact Abdomen: Positive: Unremarkable, Ascites, Distended Extremities: Present: normal. Absent: edema - Labs and Meds Comprehensive Metabolic Panel 10/03/19 Range/Units 05:19 Sodium 136 L (137-145) mmol/L Potassium 3.1 L (3.6-5.0) mmol/L Chloride 93.9 L (98-107) mmol/L Carbon Dioxide 30 (22-30) mmol/L BUN 17 (9-20) mg/dL Creatinine 1.1 (0.8-1.5) mg/dL Glucose 108 H (75-100) mg/dL Calcium 7.3 L (8.4-10.2) mg/dL
--- NOTE | 2019-10-03 11:21 | Cat Scan Report ---
CT chest wo con INDICATION / CLINICAL INFORMATION: Asymmetric left basilar infiltrates/effusion. TECHNIQUE: Axial CT imaging of the thorax was obtained without contrast. Coronal and sagittal reformatted imagin g obtained and reviewed. All CT scans at this location are performed using CT dose reduction for ALA RA by means of automated exposure control. COMPARISON: Chest radiograph, 10/01/2019 FINDINGS: Axial CT imaging of the chest, for noncontrast exam, does not reveal any suggestion of mediastinal or hilar mass or adenopathy. Thoracic aorta contains small amount of plaque but is not abnormally dilat ed. Cardiac size is mildly enlarged with mitral valve repair/prosthesis. No pericardial effusion. Very small bilateral pleural effusions are present. There is patchy parenchymal disease in the left l scott base, concerning for pneumonia. There is calcified pleural plaque seen along the left hemidiaphra gm consistent with prior asbestos exposure. Small amount of pleural effusion is present in the right major fissure. No definite evidence of pneumonia or mass. Imaging of the upper abdomen shows markedly cirrhotic appearing liver. Moderate amount of ascites is seen throughout the visualized upper abdomen. Spleen is of normal size. Gallstones are present within the gallbladder. Nodularity is seen throughout the omentum and mesentery presumably related to edema /congestion There is oval well-circumscribed mass seen between the right hemidiaphragm and the dome of the liver measuring 5.2 cm in diameter. Exact etiology is unclear. Differential diagnosis includes exophytic he patic mass versus possible metastasis. No significant osseous abnormality other than spondylitic change. IMPRESSION: 1. Left lower lobe patchy parenchymal disease worrisome for pneumonia. This could also represent roun d atelectasis. There is evidence of calcified pleural plaque in the left lung base indicative of prio r asbestos exposure. 2. Very small right pleural effusion. 3. Incidental finding of 5.2 cm nonspecific mass in the upper abdomen, situated between the right hem idiaphragm and dome of the liver. It is unclear this is an exophytic hepatic mass versus possible met astasis.. 4. The liver is markedly cirrhotic in appearance with moderate amount of ascites seen throughout the upper abdomen. 5. Cholelithiasis. Signer Name: Desiree Jin MD Signed: 10/03/2019 11:16 AM Workstation Name: [email or web address] [email or web address]
[2019-10-03] MEDS ORDERED: PNEUMOCOCCAL 23 Valent 0.5 ML VIAL IM ONE (12:00)
--- NOTE | 2019-10-03 12:41 | Progress Note ---
Assessment and Plan Assessment and plan: -- CHF exacerbation EF 10-15% Current Visit: Yes Status: Acute Anti-failure medications, Input output monitoring, low-sodium diet, Fluid restriction -- Atrial fibrillation with rapid ventricular response Current Visit: Yes Status: Acute Rate control with cardizem, heparin drip Beta-blockers, Thyroid function tests normal -- Nicotine dependence Current Visit: Yes Status: Acute Smoking cessation counseling, +15min, Nicotine patch as needed --Bioprosthetic mitral valve Current Visit: Yes Status: Acute Echo pending at time of admission, cardiology consulted in ED, -- DVT prophylaxis Current Visit: No Status: Acute SCD to BLE while in bed, Monitor closely and adjust as needed History Interval history: Patient seen and examined medical records reviewed shortness of breath slightly improved Vital signs noted Hospitalist Physical - Constitutional Vitals: Temp Pulse Resp BP Pulse Ox 98.2 F 61 18 90/54 96 10/03/19 12:09 10/03/19 12:09 10/03/19 12:09 10/03/19 12:09 10/03/19 12:09 General appearance: Present: mild distress, well-nourished - EENT Eyes: Present: PERRL, EOM intact - Neck Neck: Present: supple, normal ROM - Respiratory Respiratory effort: normal Respiratory: bilateral: diminished, negative: rales, rhonchi, wheezing - Cardiovascular Rhythm: regular Heart Sounds: Present: S1 & S2 - Extremities Extremities: no ischemia, No edema - Abdominal General gastrointestinal: soft, non-tender, non-distended, normal bowel sounds - Integumentary Integumentary: Present: clear, warm - Psychiatric Psychiatric: appropriate mood/affect, cooperative - Neurologic Neurologic: CNII-XII intact, moves all extremities Results - Labs CBC & Chem 7: 10/04/19 05:59 10/04/19 10:03 Labs: Laboratory Last Values WBC 7.2 K/mm3 (4.5-11.0) 10/01/19 14:00 RBC 3.94 M/mm3 (3.65-5.03) 10/01/19 14:00 Hgb 14.3 gm/dl (11.8-15.2) 10/01/19 14:00 Hct 40.2 % (35.5-45.6) 10/01/19 14:00 MCV 102 fl (84-94) H 10/01/19 14:00 MCH 36 pg (28-32) H 10/01/19 14:00 MCHC 36 % (32-34) H 10/01/19 14:00 RDW 16.3 % (13.2-15.2) H 10/01/19 14:00 Plt Count 292 K/mm3 (140-440) 10/01/19 14:00 Lymph % (Auto) 14.4 % (13.4-35.0) 10/01/19 14:00 [place] % (Auto) 9.8 % (0.0-7.3) H 10/01/19 14:00 Eos % (Auto) 0.8 % (0.0-4.3) 10/01/19 14:00 Baso % (Auto) 0.5 % (0.0-1.8) 10/01/19 14:00 Lymph # 1.0 K/mm3 (1.2-5.4) L 10/01/19 14:00 [place] # 0.7 K/mm3 (0.0-0.8) 10/01/19 14:00 Eos # 0.1 K/mm3 (0.0-0.4) 10/01/19 14:00 Baso # 0.1 K/mm3 (0.0-0.1) 10/01/19 14:00 Seg Neutrophils % 74.3 % (40.0-70.0) H 10/01/19 14:00 Seg Neutrophils # 5.6 K/mm3 (1.8-7.7) 10/01/19 14:00 PT 15.1 Sec. (12.2-14.9) H 10/01/19 14:47 INR 1.17 (0.87-1.13) H 10/01/19 14:47 APTT 23.4 Sec. (24.2-36.6) L 10/01/19 14:47 D-Dimer 6237.39 ng/mlDDU (0-234) H 10/01/19 14:47 Heparin Anti-Xa Level 0.48 U.I./ml (0.3-0.7) 10/02/19 16:53 Sodium 136 mmol/L (137-145) L 10/03/19 05:19 Potassium 3.1 mmol/L (3.6-5.0) L 10/03/19 05:19 Chloride 93.9 mmol/L (98-107) L 10/03/19 05:19 Carbon Dioxide 30 mmol/L (22-30) 10/03/19 05:19 Anion Gap 15 mmol/L 10/03/19 05:19 BUN 17 mg/dL (9-20) 10/03/19 05:19 Creatinine 1.1 mg/dL (0.8-1.5) 10/03/19 05:19 Estimated GFR > 60 ml/min 10/03/19 05:19 BUN/Creatinine Ratio 15 % 10/03/19 05:19 Glucose 108 mg/dL (75-100) H 10/03/19 05:19 Calcium 7.3 mg/dL (8.4-10.2) L 10/03/19 05:19 Magnesium 1.40 mg/dL (1.7-2.3) L 10/01/19 14:00 Total Bilirubin 2.20 mg/dL (0.1-1.2) H 10/01/19 14:00 AST 44 units/L (5-40) H 10/01/19 14:00 ALT 13 units/L (7-56) 10/01/19 14:00 Alkaline Phosphatase 74 units/L (35-129) 10/01/19 14:00 Troponin T < 0.010 ng/mL (0.00-0.029) 10/01/19 14:00 NT-Pro-B Natriuret Pep 2019 pg/mL (0-900) H 10/01/19 14:43 Total Protein 7.8 g/dL (6.3-8.2) 10/01/19 14:00 Albumin 2.3 g/dL (3.9-5) L 10/01/19 14:00 Albumin/Globulin Ratio 0.4 % 10/01/19 14:00 TSH 2.970 mlU/mL (0.270-4.200) 10/01/19 20:18 Free T4 1.38 ng/dL (0.76-1.46) 10/01/19 20:18 Active Medications - Current Medications Current Medications: Generic Name Dose Route Start Last Admin Trade Name Freq PRN Reason Stop Dose Admin Acetaminophen 650 mg 10/01/19 18:40 Tylenol PO Q4H PRN Pain MILD(1-3)/Fever >100.5/HURTADO Albuterol 2.5 mg 10/01/19 18:40 Proventil IH Q4HRT PRN Shortness Of Breath Furosemide 40 mg 10/02/19 12:00 10/03/19 09:44 Lasix IV 40 mg QDAY IMANI Administration Heparin Sodium/Sodium Chloride 25,000 unit in 500 mls @ 26 mls/hr 10/02/19 12:00 10/03/19 06:06 Heparin/ 0.45% Nacl-25,000 Unit/500 Ml IV 1,300 units/hr TITR IMANI 26 mls/hr Administration Protocol 1,300 UNITS/HR Metoprolol Succinate 50 mg 10/02/19 12:00 10/02/19 23:52 Metoprolol Xl PO 50 mg Q12H IMANI Administration Ondansetron HCl 4 mg 10/01/19 18:40 Zofran IV Q8H PRN Nausea And Vomiting Potassium Chloride 40 meq 10/02/19 12:00 10/03/19 09:44 K-Dur PO 10/04/19 10:01 40 meq QDAY IMANI Administration Sodium Chloride 10 ml 10/01/19 22:00 10/03/19 09:44 Sodium Chloride Flush Syringe 10 Ml IV 10 ml BID IMANI Administration Sodium Chloride 10 ml 10/01/19 18:40 Sodium Chloride Flush Syringe 10 Ml IV PRN PRN LINE FLUSH
[2019-10-03] MEDS: METOPROLOL SUCCINATE XL 50 MG TAB PO SCH ×2 (13:53→23:19)
[2019-10-04] MEDS: HEPARIN/ 0.45% NACL DRIP 25,000 UNIT/500 ML BAG IV SCH (05:16)
[2019-10-04 07:55] LABS: Hemoglobin 12.2 gm/dl (11.8-15.2)
[2019-10-04] MEDS: FUROSEMIDE 40 MG/4 ML INJ IV SCH (09:39)
[2019-10-04] MEDS: POTASSIUM CHLORIDE ER 20 MEQ TAB PO SCH (09:39)
--- NOTE | 2019-10-04 10:54 | Progress Note ---
Assessment and Plan 1. Chronic combined systolic and diastolic heart failure 2. Dilated cardiomyopathy left ventricular ejection fraction 15-20% 3. Bioprosthetic mitral follows sitting well with normal function 4. Chronic atrial fibrillation with controlled ventricular response Plan. Cardiac-minor stable continue present medication with anticoagulation. Telemetriy strips reveal ventricular rates is controlled. OK to discharge home follow up with Dr Miller. Patient to stop Plavix and start on eliquis Subjective Date of service: 10/04/19 Principal diagnosis: CHF and atrial fibrillation Interval history: No cardiac symptoms Objective Vital Signs Temp Pulse Resp BP BP Pulse Ox 10/04/19 09:09 97 10/04/19 08:08 98.2 F 93 H 18 95/67 95 10/04/19 05:20 98.4 F 10/04/19 05:19 98.4 F 10/04/19 05:18 59 L 20 96/66 99 10/04/19 01:00 88 10/04/19 00:02 99.0 F 10/04/19 00:00 65 18 102/68 98 10/03/19 23:19 96 H 10/03/19 22:00 98 10/03/19 20:31 18 10/03/19 20:29 98.9 F 10/03/19 20:28 58 L 20 104/62 96 10/03/19 17:33 89 18 97/64 96 10/03/19 13:53 100 H 93/54 10/03/19 12:09 98.2 F 61 18 90/54 96 - Physical Examination General: Appears Well, No Apparent Distress HEENT: Positive: PERRL, Normocephaly, Mucus Membranes Moist Neck: Positive: neck supple, trachea midline. Negative: JVD/HJR Cardiac: Positive: irregularly irregular, S1/S2, S3, Gallop, PMI, Dilated, Laterally Displaced Lungs: Positive: clear to auscultation, No Wheeze, Rales, Rhonchi Neuro: Positive: Grossly Intact Abdomen: Positive: Unremarkable, Ascites, Distended Extremities: Present: normal. Absent: edema - Labs and Meds CBC 10/04/19 Range/Units 05:59 Hgb 12.2 (11.8-15.2) gm/dl Hct 36.0 (35.5-45.6) % Plt Count 103 L (140-440) K/mm3
[2019-10-04] MEDS ORDERED: APIXABAN 5 MG TAB PO SCH (11:00)
[2019-10-04 11:05] LABS: BUN/Creatinine Ratio 20; Blood Urea Nitrogen 20 mg/dL (9-20); Calcium 7.5 mg/dL (8.4-10.2); Hemolysis Index 84
[2019-10-04 12:07] VITALS: BP 105/59
[2019-10-04] MEDS: METOPROLOL SUCCINATE XL 50 MG TAB PO SCH (12:07)
--- NOTE | 2019-10-04 13:12 | Discharge Summary ---
Providers - Providers Date of Admission: 10/02/19 10:04 Date of discharge: 10/04/19 Attending physician: SUPRIYA FAITH Primary care physician: SERVICE ENGINE REPAIRER Hospitalization Reason for admission: A. fib with rapid ventricular rate/worsening shortness of breath Condition: Stable Pertinent studies: Chest x-ray VQ scan CT chest Echocardiogram Abdominal ultrasound Hospital course: 58 YO Male with ND, CHF, MVP on DAPT, Nicotine Dependence, Obesity presents to ED for evaluation. Pt states that he has experienced chest palpitations, dypsnea on exertion, and shortness of breath over the past 1 day. Pt acknowledges Decreased exercise tolerance, Orthopnea/PND, and dypsnea at rest. Pt was seen and evaluated by his route sales representative today and was found to have new onset Atrial Fib with RVR. Pt instructed to seek further care at [facility]. Pt transported to [facility] via private vehicle. Pt seen and evaluated in ED and found to have Atrial Fib with RVR as well as symptoms consistent with Diastolic CHF. Pt treated with Cardizem with improvement in heart rate. Admitted to the hospital symptomatically managed, patient was placed on oral Cardizem, initially anticoagulation with heparin drip Patient symptoms gradually but significantly improved, evaluated by route sales representative medications optimized Transition from heparin drip to Eliquis today Today patient is comfortable no new complaints vital signs stable physical exam unremarkable Cleared by cardiology, stable at discharge Patient advised to seePMD, private former hand for further evaluation of abnormal finding on CT chest[calcified pleural plaque] Discharge diagnosis: -- CHF exacerbation EF 10-15% Current Visit: Yes Status: Acute Anti-failure medications, Input output monitoring, low-sodium diet, Fluid restriction -- Atrial fibrillation with rapid ventricular response Current Visit: Yes Status: Acute Rate control with cardizem, heparin drip, transitioned to Eliquis Beta-blockers, Thyroid function tests normal -- Nicotine dependence Current Visit: Yes Status: Acute Smoking cessation counseling, +15min, Nicotine patch as needed --Bioprosthetic mitral valve Current Visit: Yes Status: Acute Echo pending at time of admission, cardiology consulted in ED, --Abnormal CT chest; Calcified pleural plaque Advised to see primary care physician for further evaluation And referral to pulmonary if needed -- DVT prophylaxis Current Visit: No Status: Acute . SCD to BLE while in bed, Stable at discharge Disposition: DC-01 TO HOME OR SELFCARE Time spent for discharge: 32 min Core Measure Documentation - Palliative Care Palliative Care/ Comfort Measures: Not Applicable - Core Measures Any of the following diagnoses?: heart failure - Heart Failure Discharge Requirements YUSRA/ARB for LVSD if EF <40%: Yes Beta leander at discharge: Yes Exam - Constitutional Vitals: Temp Pulse Resp BP Pulse Ox 98.2 F 76 19 105/59 99 10/04/19 08:08 10/04/19 12:07 10/04/19 10:00 10/04/19 12:07 10/04/19 10:00 General appearance: Present: no acute distress, well-nourished - EENT Eyes: Present: PERRL, EOM intact - Neck Neck: Present: supple, normal ROM - Respiratory Respiratory effort: normal Respiratory: bilateral: diminished, negative: rales, rhonchi, wheezing - Cardiovascular Rhythm: regular Heart Sounds: Present: S1 & S2 - Extremities Extremities: no ischemia, No edema - Abdominal General gastrointestinal: Present: soft, non-tender, non-distended, normal bowel sounds - Integumentary Integumentary: Present: clear, warm - Musculoskeletal Musculoskeletal: strength equal bilaterally - Psychiatric Psychiatric: appropriate mood/affect, cooperative - Neurologic Neurologic: CNII-XII intact, moves all extremities Plan Activity: advance as tolerated Diet: other (cardiac diet) Special Instructions: smoking cessation Additional Instructions: Advised to comply with medications and diet, follow-up visits follow-up visits. Advised to see primary care physician for further evaluation of CT chest findings of calcified pleural plaque Follow up with: PRIMARY CARE, [Primary Care Provider] - 7 Days JESENIA SHELL MD [Staff Physician] - 7 Days Prescriptions: Apixaban [Eliquis] 5 mg PO Q12HR #60 tablet Nicotine [Habitrol] 14 mg TD DAILY #30 patch Furosemide [Lasix TAB] 40 mg PO QDAY #30 tablet Metoprolol Xl [Metoprolol SUCCINATE ER TAB] 50 mg PO Q12H #60 tablet Potassium Chloride 10 meq PO DAILY #30 tablet.er Lisinopril [Zestril TAB] 2.5 mg PO QDAY #30 tab
== END 2019-10-04 15:21 | disposition home or self-care (01) | DRG 308 ==
LOC: ED 13:38 → 4A 18:40 → OBSVTOIN 10-02 10:04
PROVIDERS: ADMIT Internal Medicine; ATTEND Internal Medicine
PROC: 3E0234Z Introduction of Serum, Toxoid and Vaccine into Muscle, Percutaneous Approach (ICD-10-PCS; principal; 2019-10-03)
DX: I48.91 Unspecified atrial fibrillation (principal); I50.43 Acute on chronic combined systolic (congestive) and diastolic (congestive) heart failure; R18.8 Other ascites; F17.213 Nicotine dependence, cigarettes, with withdrawal; E66.9 Obesity, unspecified; I42.0 Dilated cardiomyopathy; F12.90 Cannabis use, unspecified, uncomplicated; E87.6 Hypokalemia; E83.42 Hypomagnesemia; Z82.49 Family history of ischemic heart disease and other diseases of the circulatory system; Z79.82 Long term (current) use of aspirin; Z71.6 Tobacco abuse counseling; I25.2 Old myocardial infarction; Z68.28 Body mass index [BMI] 28.0-28.9, adult; Z95.2 Presence of prosthetic heart valve; Z79.899 Other long term (current) drug therapy; Z23 Encounter for immunization
CPT/HCPCS: 36415; 71045; 71250; 76700; 78580; 80048; 80053; 83735; 83880; 84439; 84443; 84484; 85014; 85018; 85025; 85049; 85379; 85520; 85610; 85730; 90686; 90732; 93005; 93010; 93306; 96372; 96374; 96375; 99406; G0378; A9540; J1644; J1650; J1940

== ENCOUNTER 2020-08-11 16:18 | Observation (INO) | payer MEDICARE ==
--- NOTE | 2020-08-11 17:39 | Event Note ---
ED Screening Note ED Screening Note: History of liver cirrhosis and A. fib Significant abdominal distention Has frequent paracentesis "Patient states that he gets a brand-new syringe and pulls his bellybutton and drains his own peritoneal fluid" This initial assessment/diagnostic orders/clinical plan/treatment(s) is/are subject to change based on patients health status, clinical progression and re- assessment by fellow clinical providers in the ED. Further treatment and workup at subsequent clinical providers discretion. Patient/guardian urged not to elope from the ED as their condition may be serious if not clinically assessed and managed. Initial orders include: labs EKG MAIN charge nurse fadi knows that pt needs room KHALIDA
[2020-08-11 18:34] LABS: Albumin 2.7 g/dL (3.9-5); Calcium 7.6 mg/dL (8.4-10.2)
[2020-08-11 18:48] LABS: Basophils % (Auto) 0.5 % (0.0-1.8); Eosinophils # (Auto) 0.1 K/mm3 (0.0-0.4); Eosinophils % (Auto) 0.9 % (0.0-4.3); Hematocrit 36.8 % (35.5-45.6); Hemoglobin 12.5 gm/dl (11.8-15.2); Lymphocytes # (Auto) 0.6 K/mm3 (1.2-5.4); Lymphocytes % (Auto) 9.6 % (13.4-35.0); Mean Corpuscular HGB Conc 34 % (32-34); Mean Corpuscular Volume 106 fl (84-94); Monocytes # (Auto) 0.9 K/mm3 (0.0-0.8); Monocytes % (Auto) 14.5 % (0.0-7.3); Red Blood Count 3.48 M/mm3 (3.65-5.03); Red Cell Distribution Width 14.9 % (13.2-15.2)
[2020-08-11 18:53] LABS: Platelet Count 91 K/mm3 (140-440)
[2020-08-11] MEDS ORDERED: fentaNYL 100 MCG/2 ML INJ IV ONE (19:44)
[2020-08-11] MEDS ORDERED: ONDANSETRON 4 MG/2 ML INJ IV ONE (19:44)
[2020-08-11] MEDS ORDERED: SODIUM CHLORIDE 0.9% 1000 ML 1,000 ML ONE (20:19)
[2020-08-11] MEDS ORDERED: SODIUM CHLORIDE 0.9% 1000 ML 1,000 ML IV ONE (20:26)
--- NOTE | 2020-08-11 20:26 | Emergency Department Report ---
ED Abdominal Pain HPI - General Chief Complaint: Abdominal Pain Stated Complaint: HERNIA PAINS PUI?: No Time Seen by Provider: 08/11/20 20:01 Source: patient, EMS Mode of arrival: Wheelchair Limitations: No Limitations - History of Present Illness Initial Comments: Patient is a 59-year-old male who presents emergency room with complaints of abdominal pain and hernia pain. Patient states he has been nauseated. Patient states he is only been able to tolerate sips of water and crackers. Patient states that everything else upsets his stomach. Patient states he is also not had a bowel movement. Patient states the pain is around his umbilical hernia site. Patient states that the pain is a 10 out of 10. Patient states the pain is worse with movement and palpation. Patient dates the pain is better with rest. Patient denies fever and chills. Patient denies chest pain or shortness of breath. Patient denies diaphoresis. Patient denies recent travel. Patient denies recent international travel. Patient denies exposure to the novel coronavirus. Patient denies sick contacts. Patient denies fever and chills. Patient denies cough. Patient denies diarrhea. Patient denies coming in contact with anybody with symptoms of the novel coronavirus. MD Complaint: abdominal pain -: Sudden Severity scale (0 -10): 10 - Related Data Home Medications Medication Instructions Recorded Confirmed Last Taken Aspirin 81 mg PO DAILY 10/01/19 10/01/19 Unknown Prednisone 20 mg PO DAILY 10/01/19 10/01/19 Unknown Previous Rx's Medication Instructions Recorded Last Taken Type Apixaban [Eliquis] 5 mg PO Q12HR #60 tablet 10/04/19 Unknown Rx Furosemide [Lasix TAB] 40 mg PO QDAY #30 tablet 10/04/19 Unknown Rx Lisinopril [Zestril TAB] 2.5 mg PO QDAY #30 tab 10/04/19 Unknown Rx Metoprolol Xl [Metoprolol 50 mg PO Q12H #60 tablet 10/04/19 Unknown Rx SUCCINATE ER TAB] Nicotine [Habitrol] 14 mg TD DAILY #30 patch 10/04/19 Unknown Rx Potassium Chloride 10 meq PO DAILY #30 tablet.er 10/04/19 Unknown Rx Allergies Allergy/AdvReac Type Severity Reaction Status Date / Time No Known Allergies Allergy Verified 10/01/19 13:39 ED Review of Systems ROS: Stated complaint: HERNIA PAINS Other details as noted in HPI Constitutional: denies: chills, fever Eyes: denies: eye pain, eye discharge, vision change ENT: denies: ear pain, throat pain Respiratory: denies: cough, shortness of breath, wheezing Cardiovascular: palpitations. denies: chest pain Endocrine: no symptoms reported Gastrointestinal: denies: abdominal pain, nausea, diarrhea Genitourinary: denies: urgency, dysuria Musculoskeletal: denies: back pain, joint swelling, arthralgia Skin: denies: rash, lesions Neurological: denies: headache, weakness, paresthesias Psychiatric: denies: anxiety, depression Hematological/Lymphatic: denies: easy bleeding, easy bruising ED Past Medical Hx - Past Medical History Previous Medical History?: Yes Hx Hypertension: Yes Hx Heart Attack/AMI: Yes Hx Congestive Heart Failure: Yes Hx Diabetes: No Hx Pulmonary Embolism: No Hx Sickle Cell Disease: No Hx Asthma: No Hx COPD: Yes Hx Tuberculosis: No Hx HIV: No Additional medical history: afib. MVP - Surgical History Past Surgical History?: Yes Hx Open Heart Surgery: Yes Additional Surgical History: heart valve replacement - Family History Family history: no significant - Social History Smoking Status: Former Smoker Substance Use Type: None - Medications Home Medications: Home Medications Medication Instructions Recorded Confirmed Last Taken Type Aspirin 81 mg PO DAILY 10/01/19 10/01/19 Unknown History Prednisone 20 mg PO DAILY 10/01/19 10/01/19 Unknown History Apixaban [Eliquis] 5 mg PO Q12HR #60 tablet 10/04/19 Unknown Rx Furosemide [Lasix TAB] 40 mg PO QDAY #30 tablet 10/04/19 Unknown Rx Lisinopril [Zestril TAB] 2.5 mg PO QDAY #30 tab 10/04/19 Unknown Rx Metoprolol Xl [Metoprolol 50 mg PO Q12H #60 tablet 10/04/19 Unknown Rx SUCCINATE ER TAB] Nicotine [Habitrol] 14 mg TD DAILY #30 patch 10/04/19 Unknown Rx Potassium Chloride 10 meq PO DAILY #30 tablet.er 10/04/19 Unknown Rx ED Physical Exam - General Limitations: No Limitations General appearance: alert, in no apparent distress - Head Head exam: Present: atraumatic, normocephalic - Eye Eye exam: Present: normal appearance - ENT ENT exam: Present: mucous membranes moist - Neck Neck exam: Present: normal inspection - Respiratory Respiratory exam: Present: normal lung sounds bilaterally. Absent: respiratory distress - Cardiovascular Cardiovascular Exam: Present: regular rate, normal rhythm. Absent: systolic murmur, diastolic murmur, rubs, gallop - GI/Abdominal GI/Abdominal exam: Present: soft, distended, tenderness, normal bowel sounds, other (Umbilical hernia noted. Hernia is reducible but very tender.) - Rectal Rectal exam: Present: deferred - Extremities Exam Extremities exam: Present: normal inspection - Back Exam Back exam: Present: normal inspection - Neurological Exam Neurological exam: Present: alert, oriented X3 - Psychiatric Psychiatric exam: Present: normal affect, normal mood - Skin Skin exam: Present: warm, dry, intact, normal color. Absent: rash ED Course Vital Signs 08/11/20 08/11/20 08/11/20 17:27 18:31 19:00 Temperature 99.0 F Pulse Rate 126 H 111 H 109 H Respiratory 18 25 H 26 H Rate Blood Pressure 125/77 118/71 Blood Pressure 124/84 [Right] O2 Sat by Pulse 96 99 97 Oximetry 08/11/20 20:00 Temperature Pulse Rate 114 H Respiratory 22 Rate Blood Pressure 99/75 Blood Pressure [Right] O2 Sat by Pulse 96 Oximetry - Reevaluation(s) Reevaluation #1: Patient still complaining of significant abdominal pain. Patient states the nausea is better. I discussed all results with patient. I discussed plan of care with patient. Patient agrees with plan of care and admission. Patient to be admitted to the hospitalist service. 08/11/20 21:44 08/11/20 21:45 - Consultations Consultation #1: Hospitalist consulted for admission. Hospitalist to admit patient. 08/11/20 21:43 Consultation #2: I discussed case with general surgery. 08/11/20 21:46 ED Medical Decision Making - Lab Data Result diagrams: 08/11/20 17:44 08/11/20 17:44 - EKG Data -: EKG Interpreted by Me EKG shows normal: sinus rhythm, axis, intervals, QRS complexes, ST-T waves Rate: tachycardia - EKG Data Interpretation: other (PVCs) - Radiology Data Radiology results: report reviewed CT ABDOMEN AND PELVIS WITH CONTRAST INDICATION / CLINICAL INFORMATION: Patient complains of abdominal pain. TECHNIQUE: Axial CT images were obtained through the abdomen and pelvis after IV contrast. All CT scans at this location are performed using CT dose reduction for ALARA by means of automated exposure control. COMPARISON: No prior CT of the abdomen or pelvis. Prior ultrasound abdomen complete dated 10/02/2019. FINDINGS: LOWER CHEST: Linear atelectasis noted in the left lower lobe and inferior aspect of the left upper lobe. Prior sternotomy. LIVER: Hepatic cirrhosis is noted. There is an exophytic heterogeneous lesion at the dome of the liver measuring 3.9 x 3.2 cm demonstrating enhancement. There is increased vascularity noted within the hepatic dome just beneath this lesion. GALLBLADDER: Cholelithiasis without evidence of acute cholecystitis. BILE DUCTS: No significant abnormality. PANCREAS: No significant abnormality. SPLEEN: No significant abnormality. ADRENALS: No significant abnormality. RIGHT KIDNEY / URETER: No significant abnormality. LEFT KIDNEY / URETER: No significant abnormality. STOMACH / SMALL BOWEL: No significant abnormality. COLON: No significant abnormality. APPENDIX: No significant abnormality. PERITONEUM: Large volume ascites. Wispy fat stranding of the omentum in the upper abdomen is concerning for peritoneal carcinomatosis. No free air. LYMPH NODES: Left inguinal lymph node is enlarged measuring 1.5 cm in short axis. No evidence of retroperitoneal lymphadenopathy AORTA / ARTERIES: Moderate atherosclerotic calcification without acute abnormality. IVC / VEINS: No significant abnormality. URINARY BLADDER: No significant abnormality. REPRODUCTIVE ORGANS: Prostatic calcifications are noted. ADDITIONAL FINDINGS: There is a large umbilical hernia containing ascitic fluid. SKELETAL SYSTEM: Healing bilateral rib trauma noted at multiple levels. No aggressive appearing osseous lesion. Mild multilevel degenerative changes. IMPRESSION: 1. 3.9 x 3.2 cm exophytic enhancing lesion at the dome of the liver with a background of cirrhosis likely represents malignancy, hepatocellular carcinoma leads the differential. Additionally wispy fat stranding of the omentum in the upper abdomen is concerning for peritoneal carcinomatosis. Left inguinal lymph node measures 1.5 cm in short axis. Further workup with triple phase liver CT and or PET/CT recommended. 2. Large umbilical hernia containing ascitic fluid. 3. Large volume ascites. 4. Remote bilateral rib trauma. - Medical Decision Making Patient is a 59-year-old male presents emergency room with complaints of abdominal pain and hernia pain. Patient found to have a significant umbilical hernia. On initial exam, the patient was found to have a significant umbilical hernia that was easily reducible but very tender and also abdominal distention. Patient had a CT of the abdomen with IV contrast done. Patient CT of the abdomen with IV contrast shows significant liver ascites but no bowel obstruction or hernia incarceration. The hernia on CT was fluid-filled only. The patient was given pain medication which reduced his pain slightly. Patient's nausea resolved with Zofran. Patient had labs done with her essentially unremarkable except for abnormal LFTs. Patient has a history of liver cancer and cirrhosis. Patient is under the care of an oncologist for liver cancer. Patient will require a therapeutic paracentesis for the severe ascites. Patient admitted to the hospital service for further evaluation treatment. Prior to admission, I discussed the case with general surgery and general surgery states there is nothing acute surgically to be done. - Differential Diagnosis Incarcerated hernia, abdominal pain, nausea, tachycardia, intractable pain Critical Care Time: Yes Critical care time in (mins) excluding proc time.: 35 Critical care attestation.: If time is entered above; I have spent that time in minutes in the direct care of this critically ill patient, excluding procedure time. Critical Care Time: 35 minutes ED Disposition Clinical Impression: Hypokalemia, Intractable abdominal pain, Liver mass, Tachycardia Ascites Qualifiers: Ascites type: due to alcoholic cirrhosis Qualified Code(s): K70.31 - Alcoholic cirrhosis of liver with ascites Umbilical hernia Qualifiers: Obstruction and gangrene presence: without obstruction or gangrene Qualified Code(s): K42.9 - Umbilical hernia without obstruction or gangrene Abdominal pain Qualifiers: Abdominal location: periumbilical Qualified Code(s): R10.33 - Periumbilical pain Liver cirrhosis Qualifiers: Hepatic cirrhosis type: unspecified hepatic cirrhosis Ascites presence: with ascites Qualified Code(s): K74.60 - Unspecified cirrhosis of liver; R18.8 - Other ascites Liver cancer Qualifiers: Liver malignancy type: unspecified liver malignancy Qualified Code(s): C22.9 - Malignant neoplasm of liver, not specified as primary or secondary Disposition: 09 OP ADMIT IP TO THIS HOSP Is pt being admited?: Yes Does the pt Need Aspirin: No Condition: Critical Time of Disposition: 21:57
[2020-08-11] MEDS ORDERED: HYDROmorphone 1 MG/1 ML INJ IV ONE (20:58)
--- NOTE | 2020-08-11 21:24 | Cat Scan Report ---
CT ABDOMEN AND PELVIS WITH CONTRAST INDICATION / CLINICAL INFORMATION: Patient complains of abdominal pain. TECHNIQUE: Axial CT images were obtained through the abdomen and pelvis after IV contrast. All CT scans at this location are performed using CT dose reduction for ALARA by means of automated exposure control. COMPARISON: No prior CT of the abdomen or pelvis. Prior ultrasound abdomen complete dated 10/02/2019. FINDINGS: LOWER CHEST: Linear atelectasis noted in the left lower lobe and inferior aspect of the left upper lo be. Prior sternotomy. LIVER: Hepatic cirrhosis is noted. There is an exophytic heterogeneous lesion at the dome of the live r measuring 3.9 x 3.2 cm demonstrating enhancement. There is increased vascularity noted within the h epatic dome just beneath this lesion. GALLBLADDER: Cholelithiasis without evidence of acute cholecystitis. BILE DUCTS: No significant abnormality. PANCREAS: No significant abnormality. SPLEEN: No significant abnormality. ADRENALS: No significant abnormality. RIGHT KIDNEY / URETER: No significant abnormality. LEFT KIDNEY / URETER: No significant abnormality. STOMACH / SMALL BOWEL: No significant abnormality. COLON: No significant abnormality. APPENDIX: No significant abnormality. PERITONEUM: Large volume ascites. Wispy fat stranding of the omentum in the upper abdomen is concerni ng for peritoneal carcinomatosis. No free air. LYMPH NODES: Left inguinal lymph node is enlarged measuring 1.5 cm in short axis. No evidence of retr operitoneal lymphadenopathy AORTA / ARTERIES: Moderate atherosclerotic calcification without acute abnormality. IVC / VEINS: No significant abnormality. URINARY BLADDER: No significant abnormality. REPRODUCTIVE ORGANS: Prostatic calcifications are noted. ADDITIONAL FINDINGS: There is a large umbilical hernia containing ascitic fluid. SKELETAL SYSTEM: Healing bilateral rib trauma noted at multiple levels. No aggressive appearing osseo us lesion. Mild multilevel degenerative changes. IMPRESSION: 1. 3.9 x 3.2 cm exophytic enhancing lesion at the dome of the liver with a background of cirrhosis li nicole represents malignancy, hepatocellular carcinoma leads the differential. Additionally wispy fat s tranding of the omentum in the upper abdomen is concerning for peritoneal carcinomatosis. Left inguin al lymph node measures 1.5 cm in short axis. Further workup with triple phase liver CT and or PET/CT recommended. 2. Large umbilical hernia containing ascitic fluid. 3. Large volume ascites. 4. Remote bilateral rib trauma. Signer Name: Arun Olson MD Signed: 08/11/2020 9:19 PM Workstation Name: [id number]
[2020-08-11] MEDS: POTASSIUM CHLORIDE 10 MEQ 10 MEQ/100 ML BAG IV SCH ×2 (21:54→23:48)
--- NOTE | 2020-08-11 22:07 | Consultation ---
History of Present Illness Consult date: 08/11/20 Reason for consult: abdominal pain Medications and Allergies Allergies Allergy/AdvReac Type Severity Reaction Status Date / Time No Known Allergies Allergy Verified 10/01/19 13:39 Home Medications Medication Instructions Recorded Confirmed Last Taken Type Aspirin 81 mg PO DAILY 10/01/19 10/01/19 Unknown History Prednisone 20 mg PO DAILY 10/01/19 10/01/19 Unknown History Apixaban [Eliquis] 5 mg PO Q12HR #60 tablet 10/04/19 Unknown Rx Furosemide [Lasix TAB] 40 mg PO QDAY #30 tablet 10/04/19 Unknown Rx Lisinopril [Zestril TAB] 2.5 mg PO QDAY #30 tab 10/04/19 Unknown Rx Metoprolol Xl [Metoprolol 50 mg PO Q12H #60 tablet 10/04/19 Unknown Rx SUCCINATE ER TAB] Nicotine [Habitrol] 14 mg TD DAILY #30 patch 10/04/19 Unknown Rx Potassium Chloride 10 meq PO DAILY #30 tablet.er 10/04/19 Unknown Rx Active Meds: Active Medications Potassium Chloride (Kcl 10meq/100ml) 10 meq in 100 mls @ 100 mls/hr IV Q1H IMANI Stop: 08/12/20 00:59 Last Admin: 08/11/20 21:54 Dose: 100 mls/hr Documented by: Exam Vital Signs Temp Pulse Resp BP Pulse Ox 99.0 F 126 H 18 124/84 96 08/11/20 17:27 08/11/20 17:27 08/11/20 17:27 08/11/20 17:27 08/11/20 17:27 Results - Labs 08/11/20 17:44 08/11/20 17:44 Abnormal lab results 08/11/20 08/11/20 Range/Units 17:44 17:44 RBC 3.48 L (3.65-5.03) M/mm3 MCV 106 H (84-94) fl MCH 36 H (28-32) pg Plt Count 91 L (140-440) K/mm3 Lymph % (Auto) 9.6 L (13.4-35.0) % [place] % (Auto) 14.5 H (0.0-7.3) % Lymph # (Auto) 0.6 L (1.2-5.4) K/mm3 [place] # (Auto) 0.9 H (0.0-0.8) K/mm3 Seg Neutrophils % 74.5 H (40.0-70.0) % Sodium 133 L (137-145) mmol/L Potassium 2.9 L* (3.6-5.0) mmol/L Chloride 93.8 L (98-107) mmol/L Glucose 113 H (75-100) mg/dL Calcium 7.6 L (8.4-10.2) mg/dL Total Bilirubin 2.90 H (0.1-1.2) mg/dL AST 47 H (5-40) units/L Total Protein 8.8 H (6.3-8.2) g/dL Albumin 2.7 L (3.9-5) g/dL Diabetes panel 08/11/20 Range/Units 17:44 Sodium 133 L (137-145) mmol/L Potassium 2.9 L* (3.6-5.0) mmol/L Chloride 93.8 L (98-107) mmol/L Carbon Dioxide 29 (22-30) mmol/L BUN 10 (9-20) mg/dL Creatinine 1.3 (0.8-1.3) mg/dL Glucose 113 H (75-100) mg/dL Calcium 7.6 L (8.4-10.2) mg/dL AST 47 H (5-40) units/L ALT 16 (7-56) units/L Alkaline Phosphatase 73 (35-129) units/L Total Protein 8.8 H (6.3-8.2) g/dL Albumin 2.7 L (3.9-5) g/dL Calcium panel 08/11/20 Range/Units 17:44 Calcium 7.6 L (8.4-10.2) mg/dL Albumin 2.7 L (3.9-5) g/dL Pituitary panel 08/11/20 Range/Units 17:44 Sodium 133 L (137-145) mmol/L Potassium 2.9 L* (3.6-5.0) mmol/L Chloride 93.8 L (98-107) mmol/L Carbon Dioxide 29 (22-30) mmol/L BUN 10 (9-20) mg/dL Creatinine 1.3 (0.8-1.3) mg/dL Glucose 113 H (75-100) mg/dL Calcium 7.6 L (8.4-10.2) mg/dL Adrenal panel 08/11/20 Range/Units 17:44 Sodium 133 L (137-145) mmol/L Potassium 2.9 L* (3.6-5.0) mmol/L Chloride 93.8 L (98-107) mmol/L Carbon Dioxide 29 (22-30) mmol/L BUN 10 (9-20) mg/dL Creatinine 1.3 (0.8-1.3) mg/dL Glucose 113 H (75-100) mg/dL Calcium 7.6 L (8.4-10.2) mg/dL Total Bilirubin 2.90 H (0.1-1.2) mg/dL AST 47 H (5-40) units/L ALT 16 (7-56) units/L Alkaline Phosphatase 73 (35-129) units/L Total Protein 8.8 H (6.3-8.2) g/dL Albumin 2.7 L (3.9-5) g/dL Assessment and Plan Umbilical Hernia in a Cirrhotic patient I have reviewed the CT images and there is no involvement of bowel in the hernia. Therefore, there is no surgical emergency. Pt needs appt with tire rebuilder/liver team at [facility] to manage ascites before any general surgery could be considered.
[2020-08-11] MEDS ORDERED: ONDANSETRON 4 MG/2 ML INJ IV PRN (23:09)
[2020-08-11] MEDS ORDERED: ACETAMINOPHEN 325 MG TAB PO PRN (23:09)
[2020-08-11] MEDS ORDERED: MAGNESIUM HYDROXIDE (MOM) ORAL LIQD UDC PO PRN (23:09)
--- NOTE | 2020-08-11 23:17 | History and Physical Report ---
History of Present Illness Date of examination: 08/11/20 Date of admission: 08/11/20 21:57 Chief complaint: Abdominal pain History of present illness: 59-year-old male with known history of hypertension, COPD, coronary artery disease, atrial fibrillation, history of liver cancer and liver cirrhosis presenting to the emergency room today complaining of abdominal pain. He has not been able to tolerate p.o. intake. He has had some patient nausea but no vomiting. He denies any diarrhea, no fever or chills, no chest pain or shortness of breath. Abdominal pain is more in the periumbilical area where he has an umbilical hernia. Pain is about 10/10 in severity. Pain is more upon activity and feels better while resting. Work-up in the emergency room today reveals a hypokalemia of 2.[address] of the abdomen and pelvis was significant for: 1. 3.9 x 3.2 cm exophytic enhancing lesion at the dome of the liver with a background of cirrhosis likely represents malignancy, hepatocellular carcinoma leads the differential. Additionally wispy fat stranding of the omentum in the upper abdomen is concerning for peritoneal carcinomatosis. Left inguinal lymph node measures 1.5 cm in short axis. 2. Large umbilical hernia containing ascitic fluid. 3. Large volume ascites. 4. Remote bilateral rib trauma. Patient has been asked admitted for possible paracentesis and possible evaluation of umbilical hernia by general surgeon. General surgeon on-call has been consulted by the ER physician. Past History Past Medical History: atrial fib, CAD, COPD, hypertension Past Surgical History: Other (Open heart surgery, Heart valve replacement.) Social history: smoking (Former smoker) Family history: no significant family history Medications and Allergies Allergies Allergy/AdvReac Type Severity Reaction Status Date / Time No Known Allergies Allergy Verified 10/01/19 13:39 Home Medications Medication Instructions Recorded Confirmed Last Taken Type Aspirin 81 mg PO DAILY 10/01/19 08/11/20 08/11/20 History Apixaban [Eliquis] 5 mg PO Q12HR #60 tablet 10/04/19 08/11/20 08/09/20 Rx Furosemide [Lasix TAB] 40 mg PO BID 08/11/20 08/11/20 08/11/20 History Potassium Chloride 10 meq PO BID 08/11/20 08/11/20 08/11/20 History Varenicline(Nf) [Chantix (Nf)] 0.5 mg PO BID 08/11/20 08/11/20 08/11/20 History Active Meds: Active Medications Acetaminophen (Tylenol) 650 mg PO Q4H PRN PRN Reason: Pain MILD(1-3)/Fever >100.5/[place] Potassium Chloride (Kcl 10meq/100ml) 10 meq in 100 mls @ 100 mls/hr IV Q1H IMANI Stop: 08/12/20 00:59 Last Admin: 08/11/20 21:54 Dose: 100 mls/hr Documented by: Magnesium Hydroxide (Milk Of Magnesia) 30 ml PO Q4H PRN PRN Reason: Constipation Morphine Sulfate (Morphine) 2 mg IV Q4H PRN PRN Reason: Pain, Moderate (4-6) Ondansetron HCl (Zofran) 4 mg IV Q8H PRN PRN Reason: Nausea And Vomiting Sodium Chloride (Sodium Chloride Flush Syringe 10 Ml) 10 ml IV BID [facility] Sodium Chloride (Sodium Chloride Flush Syringe 10 Ml) 10 ml IV PRN PRN PRN Reason: LINE FLUSH Review of Systems Constitutional: no fever, no chills Ears, nose, mouth and throat: no nasal congestion, no sore throat Cardiovascular: no chest pain, no palpitations Respiratory: no cough, no shortness of breath Gastrointestinal: abdominal pain, no nausea, no vomiting, no diarrhea, no melena Genitourinary Male: no dysuria, no hematuria, no flank pain Musculoskeletal: no neck pain, no low back pain Integumentary: no rash, no pruritis Neurological: no headaches, no confusion Psychiatric: no anxiety, no depression Exam - Constitutional Vitals: Temp Pulse Resp BP Pulse Ox 99.0 F 110 H 20 127/83 97 08/11/20 17:27 08/11/20 22:00 08/11/20 22:00 08/11/20 22:00 08/11/20 22:00 General appearance: Present: no acute distress, well-nourished - EENT Eyes: Present: PERRL, EOM intact. Absent: scleral icterus ENT: hearing intact, clear oral mucosa, dentition normal - Respiratory Respiratory effort: normal Respiratory: bilateral: CTA - Cardiovascular Rhythm: regular Heart Sounds: Present: S1 & S2. Absent: gallop, systolic murmur, diastolic murmur, rub - Extremities Extremities: no ischemia, pulses intact, pulses symmetrical, Full ROM Extremity abnormal: edema (Trace bilateral ankle edema) Peripheral Pulses: within normal limits - Abdominal General gastrointestinal: Present: soft, non-tender, distended, normal bowel sounds, other (Ascites, umbilical hernia-nonreducible). Absent: mass - Integumentary Integumentary: Present: clear, warm, dry - Musculoskeletal Musculoskeletal: strength equal bilaterally - Psychiatric Psychiatric: appropriate mood/affect, intact judgment & insight, memory intact, cooperative - Neurologic Neurologic: CNII-XII intact, no focal deficits, moves all extremities Results - Labs CBC & Chem 7: 08/11/20 17:44 08/11/20 17:44 Labs: Abnormal lab results 08/11/20 08/11/20 Range/Units 17:44 17:44 RBC 3.48 L (3.65-5.03) M/mm3 MCV 106 H (84-94) fl MCH 36 H (28-32) pg Plt Count 91 L (140-440) K/mm3 Lymph % (Auto) 9.6 L (13.4-35.0) % [place] % (Auto) 14.5 H (0.0-7.3) % Lymph # (Auto) 0.6 L (1.2-5.4) K/mm3 [place] # (Auto) 0.9 H (0.0-0.8) K/mm3 Seg Neutrophils % 74.5 H (40.0-70.0) % Sodium 133 L (137-145) mmol/L Potassium 2.9 L* (3.6-5.0) mmol/L Chloride 93.8 L (98-107) mmol/L Glucose 113 H (75-100) mg/dL Calcium 7.6 L (8.4-10.2) mg/dL Total Bilirubin 2.90 H (0.1-1.2) mg/dL AST 47 H (5-40) units/L Total Protein 8.8 H (6.3-8.2) g/dL Albumin 2.7 L (3.9-5) g/dL Assessment and Plan - Patient Problems (1) Abdominal pain Current Visit: Yes Status: Acute Qualifiers: Abdominal location: periumbilical Qualified Code(s): R10.33 - Periumbilical pain Plan to address problem: Possibly secondary to large volume ascites, umbilical hernia and underlying liver cancer. Patient placed on IV and adjust medication. (2) Ascites Current Visit: Yes Status: Acute Qualifiers: Ascites type: due to alcoholic cirrhosis Qualified Code(s): K70.31 - Alcoholic cirrhosis of liver with ascites Plan to address problem: Patient has known history of liver cirrhosis and liver cancer. Consult placed to interventional radiology for paracentesis. (3) Liver cancer Current Visit: Yes Status: Acute Qualifiers: Liver malignancy type: unspecified liver malignancy Qualified Code(s): C22.9 - Malignant neoplasm of liver, not specified as primary or secondary Plan to address problem: Patient to follow-up with oncology. (4) Hypokalemia Current Visit: Yes Status: Acute Plan to address problem: Potassium will be repleted and will monitor chemistry. (5) DVT prophylaxis Current Visit: Yes Status: Acute Plan to address problem: Patient placed on sequential compression device. (6) Full code status Current Visit: Yes Status: Acute
[2020-08-12] MEDS: POTASSIUM CHLORIDE 10 MEQ 10 MEQ/100 ML BAG IV SCH (01:17)
[2020-08-12] MEDS: MORPHINE 2 MG/1 ML INJ IV PRN ×5 (01:43→22:43)
[2020-08-12] MEDS ORDERED: POTASSIUM CHLORIDE 10 MEQ 10 MEQ/100 ML BAG IV ONE (05:23)
[2020-08-12] MEDS ORDERED: POTASSIUM CHLORIDE ER 20 MEQ TAB PO ONE (05:25)
[2020-08-12 06:06] LABS: Hemoglobin 11.2 gm/dl (11.8-15.2); Mean Corpuscular HGB Conc 34 % (32-34); Mean Corpuscular Volume 106 fl (84-94)
[2020-08-12 06:07] LABS: Platelet Count 79 K/mm3 (140-440)
[2020-08-12 06:16] LABS: INR 1.64 (0.87-1.13)
[2020-08-12 07:01] LABS: Total Cells Counted 100
[2020-08-12 07:02] LABS: Anisocytosis 1+; Basophils % (Manual) 0 % (0.0-1.8); Platelet Estimate Consistent w Auto
--- NOTE | 2020-08-12 08:09 | Progress Note ---
Assessment and Plan - Patient Problems (1) Abdominal pain Current Visit: Yes Status: Acute Qualifiers: Abdominal location: periumbilical Qualified Code(s): R10.33 - Periumbilical pain Plan to address problem: Secondary to umbilical hernia. Patient evaluated for surgical intervention umbilical hernia. Surgery consult suggested transfer to [facility] given significant umbilical hernia in the face of marked cirrhosis. Patient should have paracentesis done today for comfort measures. (2) Ascites Current Visit: Yes Status: Acute Qualifiers: Ascites type: due to alcoholic cirrhosis Qualified Code(s): K70.31 - Alcoholic cirrhosis of liver with ascites Plan to address problem: Both diagnostic and therapeutic paracentesis to be done today. (3) Full code status Current Visit: Yes Status: Acute (4) Hypokalemia Current Visit: Yes Status: Acute Plan to address problem: Corrected from 2.9-3.7. Will follow electrolytes. (5) Liver cancer Current Visit: Yes Status: Acute Qualifiers: Liver malignancy type: unspecified liver malignancy Qualified Code(s): C22.9 - Malignant neoplasm of liver, not specified as primary or secondary Plan to address problem: We will follow-up with oncologist as outpatient. (6) Liver cirrhosis Current Visit: Yes Status: Acute Qualifiers: Hepatic cirrhosis type: unspecified hepatic cirrhosis Ascites presence: with ascites Qualified Code(s): K74.60 - Unspecified cirrhosis of liver; R18.8 - Other ascites Plan to address problem: Current will provide pain control also paracentesis both diagnostic and therapeutic. Plan will be transferred to [facility] for potential correction of underlying umbilical hernia in the face of large volume cirrhosis. (7) Umbilical hernia Current Visit: Yes Status: Acute Qualifiers: Obstruction and gangrene presence: without obstruction or gangrene Qualified Code(s): K42.9 - Umbilical hernia without obstruction or gangrene Plan to address problem: Transfer to [place] for evaluation of surgical erection. Patient continues to have persistent pain. Continue aggressive pain control aggressive volume hydration. Subjective Date of service: 08/12/20 Principal diagnosis: Ascites cirrhosis umbilical hernia. Interval history: 59-year-old male with known history of hypertension, COPD, coronary artery disease, atrial fibrillation, history of liver cancer and liver cirrhosis presenting to the emergency room today complaining of abdominal pain. He has not been able to tolerate p.o. intake. He has had some patient nausea but no vomiting. He denies any diarrhea, no fever or chills, no chest pain or short ness of breath. Abdominal pain is more in the periumbilical area where he has an umbilical hernia. Patient has had significant improvement in pain today. I did inform patient about the complications surgery had with attempting to correct umbilical hernia with current cirrhosis. Educated patient [facility] a [facility] patient understands plan. . CT of the abdomen and pelvis was significant for: 1. 3.9 x 3.2 cm exophytic enhancing lesion at the dome of the liver with a backg round of cirrhosis likely represents malignancy, hepatocellular carcinoma leads the differential. Additionally wispy fat stranding of the omentum in the upper abdomen is concerning for peritoneal carcinomatosis. Left inguinal lymph node measures 1.5 cm in short axis. 2. Large umbilical hernia containing ascitic fluid. 3. Large volume ascites. 4. Remote bilateral rib trauma. Objective - Constitutional Vitals: Vital Signs - 12hr 08/11/20 08/11/20 08/11/20 21:00 22:00 22:02 Temperature Pulse Rate 135 H 110 H 122 H Respiratory 29 H 20 19 Rate Blood Pressure 118/87 127/83 127/83 O2 Sat by Pulse 98 97 97 Oximetry 08/11/20 08/11/20 08/11/20 22:10 22:27 22:31 Temperature Pulse Rate 131 H 131 H 117 H Respiratory 26 H 22 24 Rate Blood Pressure 127/83 118/87 118/87 O2 Sat by Pulse 96 96 94 Oximetry 08/11/20 08/11/20 08/11/20 22:41 22:51 23:00 Temperature Pulse Rate 121 H 132 H 120 H Respiratory 19 26 H 19 Rate Blood Pressure 127/83 127/83 130/79 O2 Sat by Pulse 94 95 96 Oximetry 08/11/20 08/12/20 23:40 03:50 Temperature 98.1 F 98.5 F Pulse Rate 129 H 110 H Respiratory 18 18 Rate Blood Pressure 117/90 109/78 O2 Sat by Pulse 99 95 Oximetry General appearance: Present: no acute distress - EENT Eyes: PERRL, EOM intact - Respiratory Respiratory: bilateral: diminished - Cardiovascular Rhythm: other (Tachycardia) Heart Sounds: Present: S1 & S2. Absent: gallop, rub Extremities: pulses intact, normal color, Full ROM Extremity abnormal: edema, other (Venous stasis changes) - Gastrointestinal General gastrointestinal: Present: hypoactive bowel sounds, other (Patient with marked ascites and large protuberant umbilical hernia tender to palpation.) - Genitourinary Male genitourinary: normal - Integumentary Integumentary: clear, warm, dry - Musculoskeletal Musculoskeletal: generalized weakness - Neurologic Neurologic: moves all extremities - Psychiatric Psychiatric: memory intact, appropriate mood/affect, intact judgment & insight - Labs CBC & Chem 7: 08/12/20 05:51 08/12/20 05:51 Labs: Abnormal lab results 08/11/20 08/11/20 08/12/20 Range/Units 17:44 17:44 05:51 RBC 3.48 L 3.10 L (3.65-5.03) M/mm3 Hgb 11.2 L (11.8-15.2) gm/dl Hct 33.0 L (35.5-45.6) % MCV 106 H 106 H (84-94) fl MCH 36 H 36 H (28-32) pg Plt Count 91 L 79 L (140-440) K/mm3 Lymph % (Auto) 9.6 L (13.4-35.0) % [place] % (Auto) 14.5 H (0.0-7.3) % Lymph # (Auto) 0.6 L (1.2-5.4) K/mm3 [place] # (Auto) 0.9 H (0.0-0.8) K/mm3 Seg Neutrophils % 74.5 H (40.0-70.0) % Seg Neuts % (Manual) 78.0 H (40.0-70.0) % Lymphocytes % (Manual) 12.0 L (13.4-35.0) % Monocytes % (Manual) 8.0 H (0.0-7.3) % Lymphocytes # (Manual) 0.6 L (1.2-5.4) K/mm3 PT (12.2-14.9) Sec. INR (0.87-1.13) Sodium 133 L (137-145) mmol/L Potassium 2.9 L* (3.6-5.0) mmol/L Chloride 93.8 L (98-107) mmol/L Creatinine (0.8-1.3) mg/dL Glucose 113 H (75-100) mg/dL Calcium 7.6 L (8.4-10.2) mg/dL Total Bilirubin 2.90 H (0.1-1.2) mg/dL AST 47 H (5-40) units/L Total Protein 8.8 H (6.3-8.2) g/dL Albumin 2.7 L (3.9-5) g/dL 08/12/20 08/12/20 Range/Units 05:51 05:51 RBC (3.65-5.03) M/mm3 Hgb (11.8-15.2) gm/dl Hct (35.5-45.6) % MCV (84-94) fl MCH (28-32) pg Plt Count (140-440) K/mm3 Lymph % (Auto) (13.4-35.0) % [place] % (Auto) (0.0-7.3) % Lymph # (Auto) (1.2-5.4) K/mm3 [place] # (Auto) (0.0-0.8) K/mm3 Seg Neutrophils % (40.0-70.0) % Seg Neuts % (Manual) (40.0-70.0) % Lymphocytes % (Manual) (13.4-35.0) % Monocytes % (Manual) (0.0-7.3) % Lymphocytes # (Manual) (1.2-5.4) K/mm3 PT 19.6 H (12.2-14.9) Sec. INR 1.64 H (0.87-1.13) Sodium 132 L (137-145) mmol/L Potassium (3.6-5.0) mmol/L Chloride 94.2 L (98-107) mmol/L Creatinine 1.6 H (0.8-1.3) mg/dL Glucose 116 H (75-100) mg/dL Calcium 7.0 L (8.4-10.2) mg/dL Total Bilirubin (0.1-1.2) mg/dL AST (5-40) units/L Total Protein (6.3-8.2) g/dL Albumin (3.9-5) g/dL
--- NOTE | 2020-08-12 16:44 | Procedure Note ---
Date of procedure: 08/12/20 Pre-op diagnosis: Ascites Post-op diagnosis: same Procedure: Ultrasound-guided paracentesis with 10.4 L of clear yellow ascitic fluid aspirated. A sample was sent for both culture and cytology given the findings on CT. Anesthesia: local Surgeon: PIOTR ONEILL Estimated blood loss: none Specimen disposition: to lab Condition: stable Disposition: floor
[2020-08-13] MEDS: MORPHINE 2 MG/1 ML INJ IV PRN ×4 (03:28→22:15)
[2020-08-13] MEDS ORDERED: FLU VACC QUAD 2020-2021 (6 months +)/PF 60 0.5 ML SYRINGE IM ONE (12:00)
--- NOTE | 2020-08-13 16:29 | Progress Note ---
Assessment and Plan - Patient Problems (1) Abdominal pain Current Visit: Yes Status: Acute Qualifiers: Abdominal location: periumbilical Qualified Code(s): R10.33 - Periumbilical pain Plan to address problem: Secondary to umbilical hernia. Patient evaluated for surgical intervention umbilical hernia. Surgery consult suggested transfer to [facility] given significant umbilical hernia in the face of marked cirrhosis. Patient should have paracentesis done today for comfort measures. (2) Ascites Current Visit: Yes Status: Acute Qualifiers: Ascites type: due to alcoholic cirrhosis Qualified Code(s): K70.31 - Alcoholic cirrhosis of liver with ascites Plan to address problem: Large volume ascites status post significant paracentesis. Patient symptoms have improved significantly. Plan transfer to surgery at [facility] for correction of umbilical hernia. Will discuss with surgery if patient is a candidate for discharge after another paracentesis and follow-up outpatient. (3) Full code status Current Visit: Yes Status: Acute (4) Hypokalemia Current Visit: Yes Status: Acute Plan to address problem: Corrected from 2.9-3.7. Will follow electrolytes. (5) Liver cancer Current Visit: Yes Status: Acute Qualifiers: Liver malignancy type: unspecified liver malignancy Qualified Code(s): C22.9 - Malignant neoplasm of liver, not specified as primary or secondary Plan to address problem: We will follow-up with oncologist as outpatient. (6) Liver cirrhosis Current Visit: Yes Status: Acute Qualifiers: Hepatic cirrhosis type: unspecified hepatic cirrhosis Ascites presence: with ascites Qualified Code(s): K74.60 - Unspecified cirrhosis of liver; R18.8 - Other ascites Plan to address problem: Current will provide pain control also paracentesis both diagnostic and therapeutic. Plan will be transferred to [facility] for potential correction of underlying umbilical hernia in the face of large volume cirrhosis. (7) Umbilical hernia Current Visit: Yes Status: Acute Qualifiers: Obstruction and gangrene presence: without obstruction or gangrene Qualified Code(s): K42.9 - Umbilical hernia without obstruction or gangrene Plan to address problem: Transfer to [facility] for evaluation of surgical erection. Patient continues to have persistent pain. Continue aggressive pain control aggressive volume hydration. Subjective Date of service: 08/13/20 Principal diagnosis: Ascites cirrhosis umbilical hernia. Interval history: 59-year-old male with known history of hypertension, COPD, coronary artery disease, atrial fibrillation, history of liver cancer and liver cirrhosis presenting to the emergency room today complaining of abdominal pain. He has not been able to tolerate p.o. intake. He has had some patient nausea but no vomiting. He denies any diarrhea, no fever or chills, no chest pain or shortness of breath. Abdominal pain is more in the periumbilical area where he has an umbilical hernia. Patient has had significant improvement in pain today. I did inform patient about the complications surgery had with attempting to correct umbilical hernia with current cirrhosis. Educated patient about transfer to a [facility] patient understands plan. . CT of the abdomen and pelvis was significant for: 1. 3.9 x 3.2 cm exophytic enhancing lesion at the dome of the liver with a background of cirrhosis likely represents malignancy, hepatocellular carcinoma leads the differential. Additionally wispy fat stranding of the omentum in the upper abdomen is concerning for peritoneal carcinomatosis. Left inguinal lymph node measures 1.5 cm in short axis. 2. Large umbilical hernia containing ascitic fluid. 3. Large volume ascites. 08/13/2020. Patient status post large-volume paracentesis. Feels much better. Plan is to have patient transfer to [facility] for correction of umbilical hernia. Objective - Constitutional Vitals: Vital Signs - 12hr 08/13/20 08/13/20 08/13/20 07:00 11:12 12:00 Temperature 98.2 F 98.0 F 98.4 F Pulse Rate 140 H 105 H 107 H Respiratory 20 18 20 Rate Blood Pressure 102/76 Blood Pressure 101/73 102/76 [Left] O2 Sat by Pulse 96 95 95 Oximetry General appearance: Present: no acute distress, well-nourished - EENT Eyes: PERRL, EOM intact ENT: hearing intact, clear oral mucosa Ears: bilateral: normal - Neck Neck: supple, normal ROM - Respiratory Respiratory effort: normal Respiratory: bilateral: CTA - Breasts Breasts: normal - Cardiovascular Rhythm: regular Heart Sounds: Present: S1 & S2. Absent: gallop, rub Extremities: pulses intact, No edema, normal color, Full ROM - Gastrointestinal General gastrointestinal: Present: soft, normal bowel sounds, other (Marked improvement of ascites.) - Genitourinary Male genitourinary: normal - Integumentary Integumentary: clear, warm, dry - Musculoskeletal Musculoskeletal: 1, strength equal bilaterally - Neurologic Neurologic: moves all extremities - Psychiatric Psychiatric: memory intact, appropriate mood/affect, intact judgment & insight - Labs CBC & Chem 7: 08/12/20 05:51 08/12/20 05:51
[2020-08-14] MEDS: MORPHINE 2 MG/1 ML INJ IV PRN ×3 (04:53→13:46)
--- NOTE | 2020-08-14 15:15 | Progress Note ---
Assessment and Plan - Patient Problems (1) Abdominal pain Current Visit: Yes Status: Acute Qualifiers: Abdominal location: periumbilical Qualified Code(s): R10.33 - Periumbilical pain Plan to address problem: Secondary to umbilical hernia. Patient evaluated for surgical intervention umbilical hernia. Surgery consult suggested transfer to [facility] given significant umbilical hernia in the face of marked cirrhosis. Patient should have paracentesis done today for comfort measures. (2) Ascites Current Visit: Yes Status: Acute Qualifiers: Ascites type: due to alcoholic cirrhosis Qualified Code(s): K70.31 - Alcoholic cirrhosis of liver with ascites Plan to address problem: Large volume ascites status post significant paracentesis. Patient symptoms have improved significantly. Plan transfer to surgery at [place] for correction of umbilical hernia. Will discuss with surgery if patient is a candidate for discharge after another paracentesis and follow-up outpatient. (3) Full code status Current Visit: Yes Status: Acute (4) Hypokalemia Current Visit: Yes Status: Acute Plan to address problem: Corrected from 2.9-3.7. Will follow electrolytes. (5) Liver cancer Current Visit: Yes Status: Acute Qualifiers: Liver malignancy type: unspecified liver malignancy Qualified Code(s): C22.9 - Malignant neoplasm of liver, not specified as primary or secondary Plan to address problem: We will follow-up with oncologist as outpatient. (6) Liver cirrhosis Current Visit: Yes Status: Acute Qualifiers: Hepatic cirrhosis type: unspecified hepatic cirrhosis Ascites presence: with ascites Qualified Code(s): K74.60 - Unspecified cirrhosis of liver; R18.8 - Other ascites Plan to address problem: Current will provide pain control also paracentesis both diagnostic and therapeutic. Plan will be transferred to [facility] for potential correction of underlying umbilical hernia in the face of large volume cirrhosis. (7) Umbilical hernia Current Visit: Yes Status: Acute Qualifiers: Obstruction and gangrene presence: without obstruction or gangrene Qualified Code(s): K42.9 - Umbilical hernia without obstruction or gangrene Plan to address problem: Transfer to [place] for evaluation of surgical erection. Patient continues to have persistent pain. Continue aggressive pain control aggressive volume hydration. Subjective Date of service: 08/14/20 Principal diagnosis: Ascites cirrhosis umbilical hernia. Interval history: 59-year-old male with known history of hypertension, COPD, coronary artery disease, atrial fibrillation, history of liver cancer and liver cirrhosis presenting to the emergency room today complaining of abdominal pain. He has not been able to tolerate p.o. intake. He has had some patient nausea but no vomiting. He denies any diarrhea, no fever or chills, no chest pain or shortness of breath. Abdominal pain is more in the periumbilical area where he has an umbilical hernia. Patient has had significant improvement in pain today. I did inform patient about the complications surgery had with attempting to correct umbilical hernia with current cirrhosis. [facility] patient understands plan. . CT of the abdomen and pelvis was significant for: 1. 3.9 x 3.2 cm exophytic enhancing lesion at the dome of the liver with a background of cirrhosis likely represents malignancy, hepatocellular carcinoma leads the differential. Additionally wispy fat stranding of the omentum in the upper abdomen is concerning for peritoneal carcinomatosis. Left inguinal lymph node measures 1.5 cm in short axis. 2. Large umbilical hernia containing ascitic fluid. 3. Large volume ascites. 08/13/2020. Patient status post large-volume paracentesis. Feels much better. Plan is to have patient transfer to [place] for correction of umbilical hernia. 08/14/2020. Minimal reaccumulation of ascites. Continues to feel better. Plan would be transferred patient to [place] for correction of umbilical hernia versus discharge and further evaluation by general surgery at [place]. Objective - Constitutional Vitals: Vital Signs - 12hr 08/14/20 08/14/20 08/14/20 06:06 07:06 11:41 Temperature 98.5 F 98.4 F 98.4 F Pulse Rate 111 H 115 H 52 L Respiratory 18 16 97 H Rate Blood Pressure 103/79 116/87 Blood Pressure 95/71 [Left] O2 Sat by Pulse 95 95 97 Oximetry General appearance: Present: no acute distress, well-nourished - EENT Eyes: PERRL, EOM intact ENT: hearing intact, clear oral mucosa Ears: bilateral: normal - Neck Neck: supple, normal ROM - Respiratory Respiratory effort: normal Respiratory: bilateral: CTA - Breasts Breasts: normal - Cardiovascular Rhythm: regular Heart Sounds: Present: S1 & S2. Absent: gallop, rub Extremities: pulses intact, No edema, normal color, Full ROM - Gastrointestinal General gastrointestinal: Present: soft, tender, non-distended, normal bowel sounds, other (Still has marked ascites tenderness at umbilical hernia point.) - Genitourinary Male genitourinary: normal - Integumentary Integumentary: clear, warm, dry - Musculoskeletal Musculoskeletal: 1, strength equal bilaterally - Neurologic Neurologic: moves all extremities - Psychiatric Psychiatric: memory intact, appropriate mood/affect, intact judgment & insight - Labs CBC & Chem 7: 08/12/20 05:51 08/12/20 05:51
[2020-08-14] MEDS ORDERED: MORPHINE 2 MG/1 ML INJ IV PRN (17:34)
[2020-08-14] MEDS: MORPHINE 4 MG/1 ML INJ IV PRN ×2 (18:01→22:18)
[2020-08-15] MEDS: MORPHINE 4 MG/1 ML INJ IV PRN ×4 (04:46→20:55)
--- NOTE | 2020-08-15 07:49 | Progress Note ---
Assessment and Plan - Patient Problems (1) Abdominal pain Current Visit: Yes Status: Acute Qualifiers: Abdominal location: periumbilical Qualified Code(s): R10.33 - Periumbilical pain Plan to address problem: Patient again ascites has accumulated rather quickly from the to the . Abdominal hernia also has become more painful. Plan would have another paracentesis today and attempt to transfer to [place] for surgical services that can perform surgery on umbilical hernia with ongoing ascites. (2) Ascites Current Visit: Yes Status: Acute Qualifiers: Ascites type: due to alcoholic cirrhosis Qualified Code(s): K70.31 - Alcoholic cirrhosis of liver with ascites Plan to address problem: Large volume ascites status post significant paracentesis. Patient symptoms have improved significantly. Plan transfer to surgery at [place] for correction of umbilical hernia. Will discuss with surgery if patient is a candidate for discharge after another paracentesis and follow-up outpatient. (3) Full code status Current Visit: Yes Status: Acute (4) Hypokalemia Current Visit: Yes Status: Acute Plan to address problem: Corrected from 2.9-3.7. Will follow electrolytes. Correct potassium today IV. (5) Liver cancer Current Visit: Yes Status: Acute Qualifiers: Liver malignancy type: unspecified liver malignancy Qualified Code(s): C22.9 - Malignant neoplasm of liver, not specified as primary or secondary Plan to address problem: We will follow-up with oncologist as outpatient. (6) Liver cirrhosis Current Visit: Yes Status: Acute Qualifiers: Hepatic cirrhosis type: unspecified hepatic cirrhosis Ascites presence: with ascites Qualified Code(s): K74.60 - Unspecified cirrhosis of liver; R18.8 - Other ascites Plan to address problem: Current will provide pain control also paracentesis both diagnostic and therapeutic. Plan will be transferred to [facility] for potential correction of underlying umbilical hernia in the face of large volume cirrhosis. (7) Umbilical hernia Current Visit: Yes Status: Acute Qualifiers: Obstruction and gangrene presence: without obstruction or gangrene Qualified Code(s): K42.9 - Umbilical hernia without obstruction or gangrene Plan to address problem: Transfer to [place] for evaluation of surgical erection. Patient continues to stanley ve persistent pain. Continue aggressive pain control aggressive volume hydration. Subjective Date of service: 08/15/20 Principal diagnosis: Ascites cirrhosis umbilical hernia. Interval history: Patient has accumulated ascites rather quickly after large-volume paracentesis on 2019. Plan would be additional paracentesis and transfer to [facility] for surgical intervention of hernia and abdominal pain. Objective - Constitutional Vitals: Vital Signs - 12hr 08/14/20 08/15/20 20:04 05:20 Temperature 98.0 F 98.0 F Pulse Rate 124 H 124 H Respiratory 18 18 Rate Blood Pressure 150/84 130/84 O2 Sat by Pulse 97 98 Oximetry General appearance: Present: no acute distress, well-nourished - EENT Eyes: PERRL, EOM intact ENT: hearing intact, clear oral mucosa Ears: bilateral: normal - Neck Neck: supple, normal ROM - Respiratory Respiratory effort: normal Respiratory: bilateral: CTA - Breasts Breasts: normal - Cardiovascular Rhythm: regular Heart Sounds: Present: S1 & S2. Absent: gallop, rub Extremities: pulses intact, No edema, normal color, Full ROM - Gastrointestinal General gastrointestinal: Present: soft, non-tender, distended, normal bowel sounds, other (Large volume ascites. Along with painful umbilical hernia.). Absent: hepatomegaly, splenomegaly, mass - Genitourinary Male genitourinary: normal - Integumentary Integumentary: clear, warm, dry - Musculoskeletal Musculoskeletal: 1, strength equal bilaterally - Neurologic Neurologic: moves all extremities - Psychiatric Psychiatric: memory intact, appropriate mood/affect, intact judgment & insight - Labs CBC & Chem 7: 08/15/20 07:10 08/15/20 07:10
[2020-08-15 07:53] LABS: Basophils % (Auto) 0.4 % (0.0-1.8); Eosinophils # (Auto) 0.2 K/mm3 (0.0-0.4); Eosinophils % (Auto) 3.4 % (0.0-4.3); Hematocrit 33.3 % (35.5-45.6); Hemoglobin 11.4 gm/dl (11.8-15.2); Lymphocytes # (Auto) 0.6 K/mm3 (1.2-5.4); Lymphocytes % (Auto) 9.5 % (13.4-35.0); Mean Corpuscular HGB Conc 34 % (32-34); Mean Corpuscular Volume 105 fl (84-94); Monocytes % (Auto) 15.8 % (0.0-7.3); Red Blood Count 3.18 M/mm3 (3.65-5.03); Red Cell Distribution Width 14.6 % (13.2-15.2)
[2020-08-15 08:12] LABS: Platelet Count 73 K/mm3 (140-440)
[2020-08-15 08:16] LABS: BUN/Creatinine Ratio 11; Blood Urea Nitrogen 12 mg/dL (9-20); Calcium 7.1 mg/dL (8.4-10.2); Hemolysis Index 18
--- NOTE | 2020-08-15 14:51 | Procedure Note ---
Date of procedure: 08/15/20 Pre-op diagnosis: ascites Post-op diagnosis: same Procedure: US paracentesis Findings: moderate ascites Anesthesia: local Surgeon: GERBER LEON Estimated blood loss: none Pathology: list (120cc) Specimen disposition: to lab Condition: stable Disposition: floor
--- NOTE | 2020-08-15 15:44 | Ultrasound Report ---
ULTRASOUND-GUIDED PARACENTESIS HISTORY: abdominal ascites. PROCEDURE: The risks (including but not limited to bleeding, infection, and bowel injury) and benefi ts were explained to the patient and informed consent was obtained. A time out procedure was perform ed. Ultrasound was used to evaluate the abdomen and locate the largest ascites fluid pocket. Once the sk in was marked, the procedure site was prepped and draped in the usual sterile fashion and lidocaine w as used for local anesthesia. A skin jaquan was made and a 5 Japanese centesis catheter was placed. The patient was monitored closely throughout the procedure, and a total of 6900 mL of clear yellow fluid was aspirated. Samples were sent to the lab for further evaluation per the primary clinicians order s. The patient tolerated the procedure well with no complications. IMPRESSION: Successful ultrasound-guided paracentesis as described. Signer Name: Gurjit Jones Jr, MD Signed: 08/15/2020 3:39 PM Workstation Name: [id number]
[2020-08-16] MEDS ORDERED: MORPHINE 4 MG/1 ML INJ ONE (01:30)
[2020-08-16] MEDS: MORPHINE 4 MG/1 ML INJ IV PRN ×4 (07:35→20:25)
[2020-08-17] MEDS: MORPHINE 4 MG/1 ML INJ IV PRN ×3 (00:13→12:36)
--- NOTE | 2020-08-17 11:48 | Progress Note ---
Assessment and Plan Assessment and plan: 59-year-old male with known history of hypertension, COPD, coronary artery disease, atrial fibrillation, history of liver cancer and liver cirrhosis presenting to the emergency room today complaining of abdominal pain. He has not been able to tolerate p.o. intake. He has had some patient nausea but no vomiting. He denies any diarrhea, no fever or chills, no chest pain or shortness of breath. Abdominal pain is more in the periumbilical area where he has an umbilical hernia. Pain is about 10/10 in severity. Pain is more upon activity and feels better while resting. Work-up in the emergency room today reveals a hypokalemia of 2.[address] of the abdomen and pelvis was significant for: 1. 3.9 x 3.2 cm exophytic enhancing lesion at the dome of the liver with a background of cirrhosis likely represents malignancy, hepatocellular carcinoma leads the differential. Additionally wispy fat stranding of the omentum in the upper abdomen is concerning for peritoneal carcinomatosis. Left inguinal lymph node measures 1.5 cm in short axis. 2. Large umbilical hernia containing ascitic fluid. 3. Large volume ascites. 4. Remote bilateral rib trauma. Patient has been asked admitted for possible paracentesis and possible evaluation of umbilical hernia by general surgeon. General surgeon on-call has been consulted by the ER physician. Patient has accumulated ascites rather quickly after large-volume paracentesis on 2019. Plan would be additional paracentesis and transfer to [facility] for surgical intervention of hernia and abdominal pain. - Patient Problems (1) Abdominal pain Current Visit: Yes Status: Acute Qualifiers: Abdominal location: periumbilical Qualified Code(s): R10.33 - Periumbilical pain Plan to address problem: Patient again ascites has accumulated rather quickly from the to the . Abdominal hernia also has become more painful. Plan would have another paracentesis today and attempt to transfer to [place] for surgical services that can perform surgery on umbilical hernia with ongoing ascites. (2) Ascites Current Visit: Yes Status: Acute Qualifiers: Ascites type: due to alcoholic cirrhosis Qualified Code(s): K70.31 - Alcoholic cirrhosis of liver with ascites Plan to address problem: Large volume ascites status post significant paracentesis. Patient symptoms have improved significantly. Plan transfer to surgery at [place] for correction of umbilical hernia. Will discuss with surgery if patient is a candidate for discharge after another paracentesis and follow-up outpatient. (3) Full code status Current Visit: Yes Status: Acute (4) Hypokalemia Current Visit: Yes Status: Acute Plan to address problem: Corrected from 2.9-3.7. Will follow electrolytes. Correct potassium today IV. (5) Liver cancer Current Visit: Yes Status: Acute Qualifiers: Liver malignancy type: unspecified liver malignancy Qualified Code(s): C22.9 - Malignant neoplasm of liver, not specified as primary or secondary Plan to address problem: We will follow-up with oncologist as outpatient. (6) Liver cirrhosis Current Visit: Yes Status: Acute Qualifiers: Hepatic cirrhosis type: unspecified hepatic cirrhosis Ascites presence: with ascites Qualified Code(s): K74.60 - Unspecified cirrhosis of liver; R18.8 - Other ascites Plan to address problem: Current will provide pain control also paracentesis both diagnostic and thera peutic. Plan will be transferred to [facility] for potential correction of underlying umbilical hernia in the face of large volume cirrhosis. (7) Umbilical hernia Current Visit: Yes Status: Acute Qualifiers: Obstruction and gangrene presence: without obstruction or gangrene Qualified Code(s): K42.9 - Umbilical hernia without obstruction or gangrene Plan to address problem: Transfer to [place] for evaluation of surgical erection. Patient continues to have persistent pain. Continue aggressive pain control aggressive volume hydration. History Interval history: Patient seen and examined, resting comfortable, awaiting paracentesis. Hospitalist Physical - Physical exam Narrative exam: General appearance: Present: no acute distress, well-nourished - EENT Eyes: PERRL, EOM intact ENT: hearing intact, clear oral mucosa Ears: bilateral: normal - Neck Neck: supple, normal ROM - Respiratory Respiratory effort: normal Respiratory: bilateral: CTA - Breasts Breasts: normal - Cardiovascular Rhythm: regular Heart Sounds: Present: S1 & S2. Absent: gallop, rub Extremities: pulses intact, No edema, normal color, Full ROM - Gastrointestinal General gastrointestinal: Present: soft, non-tender, distended, normal bowel sounds, other (Large volume ascites. Along with painful umbilical hernia.). Absent: hepatomegaly, splenomegaly, mass - Genitourinary Male genitourinary: normal - Integumentary Integumentary: clear, warm, dry - Musculoskeletal Musculoskeletal: 1, strength equal bilaterally - Neurologic Neurologic: moves all extremities - Psychiatric Psychiatric: memory intact, appropriate mood/affect, intact judgment & insight - Constitutional Vitals: Temp Pulse Resp BP Pulse Ox 98.2 F 119 H 18 117/76 99 08/17/20 07:26 08/17/20 07:26 08/17/20 07:26 08/17/20 07:26 08/17/20 07:26 General appearance: Present: no acute distress, well-nourished Results - Labs CBC & Chem 7: 08/15/20 07:10 08/15/20 07:10 Labs: Laboratory Last Values WBC 6.0 K/mm3 (4.5-11.0) 08/15/20 07:10 RBC 3.18 M/mm3 (3.65-5.03) L 08/15/20 07:10 Hgb 11.4 gm/dl (11.8-15.2) L 08/15/20 07:10 Hct 33.3 % (35.5-45.6) L 08/15/20 07:10 MCV 105 fl (84-94) H 08/15/20 07:10 MCH 36 pg (28-32) H 08/15/20 07:10 MCHC 34 % (32-34) 08/15/20 07:10 RDW 14.6 % (13.2-15.2) 08/15/20 07:10 Plt Count 73 K/mm3 (140-440) L 08/15/20 07:10 Lymph % (Auto) 9.5 % (13.4-35.0) L 08/15/20 07:10 [place] % (Auto) 15.8 % (0.0-7.3) H 08/15/20 07:10 Eos % (Auto) 3.4 % (0.0-4.3) 08/15/20 07:10 Baso % (Auto) 0.4 % (0.0-1.8) 08/15/20 07:10 Lymph # (Auto) 0.6 K/mm3 (1.2-5.4) L 08/15/20 07:10 [place] # (Auto) 1.0 K/mm3 (0.0-0.8) H 08/15/20 07:10 Eos # (Auto) 0.2 K/mm3 (0.0-0.4) 08/15/20 07:10 Baso # (Auto) 0.0 K/mm3 (0.0-0.1) 08/15/20 07:10 Add Manual Diff Complete 08/12/20 05:51 Total Counted 100 08/12/20 05:51 Seg Neutrophils % 70.9 % (40.0-70.0) H 08/15/20 07:10 Seg Neuts % (Manual) 78.0 % (40.0-70.0) H 08/12/20 05:51 Band Neutrophils % 0 % 08/12/20 05:51 Lymphocytes % (Manual) 12.0 % (13.4-35.0) L 08/12/20 05:51 Reactive Lymphs % (Man) 1.0 % 08/12/20 05:51 Monocytes % (Manual) 8.0 % (0.0-7.3) H 08/12/20 05:51 Eosinophils % (Manual) 1.0 % (0.0-4.3) 08/12/20 05:51 Basophils % (Manual) 0 % (0.0-1.8) 08/12/20 05:51 Metamyelocytes % 0 % 08/12/20 05:51 Myelocytes % 0 % 08/12/20 05:51 Promyelocytes % 0 % 08/12/20 05:51 Blast Cells % 0 % 08/12/20 05:51 Nucleated RBC % Not Reportable 08/12/20 05:51 Seg Neutrophils # 4.3 K/mm3 (1.8-7.7) 08/15/20 07:10 Seg Neutrophils # Man 4.2 K/mm3 (1.8-7.7) 08/12/20 05:51 Band Neutrophils # 0.0 K/mm3 08/12/20 05:51 Lymphocytes # (Manual) 0.6 K/mm3 (1.2-5.4) L 08/12/20 05:51 Abs React Lymphs (Man) 0.1 K/mm3 08/12/20 05:51 Monocytes # (Manual) 0.4 K/mm3 (0.0-0.8) 08/12/20 05:51 Eosinophils # (Manual) 0.1 K/mm3 (0.0-0.4) 08/12/20 05:51 Basophils # (Manual) 0.0 K/mm3 (0.0-0.1) 08/12/20 05:51 Metamyelocytes # 0.0 K/mm3 08/12/20 05:51 Myelocytes # 0.0 K/mm3 08/12/20 05:51 Promyelocytes # 0.0 K/mm3 08/12/20 05:51 Blast Cells # 0.0 K/mm3 08/12/20 05:51 WBC Morphology Not Reportable 08/12/20 05:51 Hypersegmented Neuts Not Reportable 08/12/20 05:51 Hyposegmented Neuts Not Reportable 08/12/20 05:51 Hypogranular Neuts Not Reportable 08/12/20 05:51 Smudge Cells Not Reportable 08/12/20 05:51 Toxic Granulation Not Reportable 08/12/20 05:51 Toxic Vacuolation Not Reportable 08/12/20 05:51 Dohle Bodies Not Reportable 08/12/20 05:51 Pelger-Huet Anomaly Not Reportable 08/12/20 05:51 Urmila Rods Not Reportable 08/12/20 05:51 Platelet Estimate Consistent w auto 08/12/20 05:51 Clumped Platelets Not Reportable 08/12/20 05:51 Plt Clumps, EDTA Not Reportable 08/12/20 05:51 Large Platelets Not Reportable 08/12/20 05:51 Giant Platelets Not Reportable 08/12/20 05:51 Platelet Satelliting Not Reportable 08/12/20 05:51 Plt Morphology Comment Not Reportable 08/12/20 05:51 RBC Morphology Not Reportable 08/12/20 05:51 Dimorphic RBCs Not Reportable 08/12/20 05:51 Polychromasia Not Reportable 08/12/20 05:51 Hypochromasia Not Reportable 08/12/20 05:51 Poikilocytosis Not Reportable 08/12/20 05:51 Anisocytosis 1+ 08/12/20 05:51 Microcytosis Not Reportable 08/12/20 05:51 Macrocytosis Not Reportable 08/12/20 05:51 Spherocytes Not Reportable 08/12/20 05:51 Pappenheimer Bodies Not Reportable 08/12/20 05:51 Sickle Cells Not Reportable 08/12/20 05:51 Target Cells Not Reportable 08/12/20 05:51 Tear Drop Cells Not Reportable 08/12/20 05:51 Ovalocytes Not Reportable 08/12/20 05:51 Helmet Cells Not Reportable 08/12/20 05:51 Leung-Kamas Bodies Not Reportable 08/12/20 05:51 Mccloud Rings Not Reportable 08/12/20 05:51 Chuck Cells Not Reportable 08/12/20 05:51 Bite Cells Not Reportable 08/12/20 05:51 Crenated Cell Not Reportable 08/12/20 05:51 Elliptocytes Not Reportable 08/12/20 05:51 Acanthocytes (Spur) Not Reportable 08/12/20 05:51 Rouleaux Not Reportable 08/12/20 05:51 Hemoglobin C Crystals Not Reportable 08/12/20 05:51 Schistocytes Not Reportable 08/12/20 05:51 Malaria parasites Not Reportable 08/12/20 05:51 Ceferino Bodies Not Reportable 08/12/20 05:51 Hem Pathologist Commnt No 08/12/20 05:51 PT 19.6 Sec. (12.2-14.9) H 08/12/20 05:51 INR 1.64 (0.87-1.13) H 08/12/20 05:51 Sodium 129 mmol/L (137-145) L 08/15/20 07:10 Potassium 3.7 mmol/L (3.6-5.0) 08/15/20 07:10 Chloride 93.9 mmol/L (98-107) L 08/15/20 07:10 Carbon Dioxide 31 mmol/L (22-30) H 08/15/20 07:10 Anion Gap 8 mmol/L 08/15/20 07:10 BUN 12 mg/dL (9-20) 08/15/20 07:10 Creatinine 1.1 mg/dL (0.8-1.3) 08/15/20 07:10 Estimated GFR > 60 ml/min 08/15/20 07:10 BUN/Creatinine Ratio 11 % 08/15/20 07:10 Glucose 100 mg/dL (75-100) 08/15/20 07:10 Calcium 7.1 mg/dL (8.4-10.2) L 08/15/20 07:10 Total Bilirubin 2.90 mg/dL (0.1-1.2) H 08/11/20 17:44 AST 47 units/L (5-40) H 08/11/20 17:44 ALT 16 units/L (7-56) 08/11/20 17:44 Alkaline Phosphatase 73 units/L (35-129) 08/11/20 17:44 Total Protein 8.8 g/dL (6.3-8.2) H 08/11/20 17:44 Albumin 2.7 g/dL (3.9-5) L 08/11/20 17:44 Albumin/Globulin Ratio 0.4 % 08/11/20 17:44 Lipase 15 units/L (13-60) 08/11/20 17:44 Mabry/IV: Voiding Method Toilet IV Catheter Type [Left Peripheral IV Antecubital] Active Medications - Current Medications Current Medications: Generic Name Dose Route Start Last Admin Trade Name Freq PRN Reason Stop Dose Admin Acetaminophen 650 mg 08/11/20 23:09 Tylenol PO Q4H PRN Pain MILD(1-3)/Fever >100.5/HURTADO Magnesium Hydroxide 30 ml 08/11/20 23:09 Milk Of Magnesia PO Q4H PRN Constipation Morphine Sulfate 3 mg 08/14/20 17:44 08/17/20 07:41 Morphine IV 3 mg Q4H PRN Administration Pain , Severe (7-10) Ondansetron HCl 4 mg 08/11/20 23:09 Zofran IV Q8H PRN Nausea And Vomiting Sodium Chloride 10 ml 08/12/20 10:00 08/16/20 22:17 Sodium Chloride Flush Syringe 10 Ml IV Not Given BID IMANI Sodium Chloride 10 ml 08/11/20 23:09 Sodium Chloride Flush Syringe 10 Ml IV PRN PRN LINE FLUSH
[2020-08-17 11:49] VITALS: BP 129/89
--- NOTE | 2020-08-17 12:11 | Progress Note ---
Assessment and Plan Assessment and plan: 59-year-old male with known history of hypertension, COPD, coronary artery disease, atrial fibrillation, history of liver cancer and liver cirrhosis presenting to the emergency room today complaining of abdominal pain. He has not been able to tolerate p.o. intake. He has had some patient nausea but no vomiting. He denies any diarrhea, no fever or chills, no chest pain or shortness of breath. Abdominal pain is more in the periumbilical area where he has an umbilical hernia. Pain is about 10/10 in severity. Pain is more upon activity and feels better while resting. Work-up in the emergency room today reveals a hypokalemia of 2.[address] of the abdomen and pelvis was significant for: 1. 3.9 x 3.2 cm exophytic enhancing lesion at the dome of the liver with a background of cirrhosis likely represents malignancy, hepatocellular carcinoma leads the differential. Additionally wispy fat stranding of the omentum in the upper abdomen is concerning for peritoneal carcinomatosis. Left inguinal lymph node measures 1.5 cm in short axis. 2. Large umbilical hernia containing ascitic fluid. 3. Large volume ascites. 4. Remote bilateral rib trauma. Patient has been asked admitted for possible paracentesis and possible evaluation of umbilical hernia by general surgeon. General surgeon on-call has been consulted by the ER physician. Patient has accumulated ascites rather quickly after large-volume paracentesis on 2019. Plan would be additional paracentesis and transfer to [facility] for surgical intervention of hernia and abdominal pain. - Patient Problems (1) Abdominal pain Current Visit: Yes Status: Acute Qualifiers: Abdominal location: periumbilical Qualified Code(s): R10.33 - Periumbilical pain Plan to address problem: Patient again ascites has accumulated rather quickly from the to the . Abdominal hernia also has become more painful. Plan would have another paracentesis today and attempt to transfer to [place] for surgical services that can perform surgery on umbilical hernia with ongoing ascites. (2) Ascites Current Visit: Yes Status: Acute Qualifiers: Ascites type: due to alcoholic cirrhosis Qualified Code(s): K70.31 - Alcoholic cirrhosis of liver with ascites Plan to address problem: Large volume ascites status post significant paracentesis. Patient symptoms have improved significantly. Plan transfer to surgery at [place] for correction of umbilical hernia. Will discuss with surgery if patient is a candidate for discharge after another paracentesis and follow-up outpatient. (3) Full code status Current Visit: Yes Status: Acute (4) Hypokalemia Current Visit: Yes Status: Acute Plan to address problem: Corrected from 2.9-3.7. Will follow electrolytes. Correct potassium today IV. (5) Liver cancer Current Visit: Yes Status: Acute Qualifiers: Liver malignancy type: unspecified liver malignancy Qualified Code(s): C22.9 - Malignant neoplasm of liver, not specified as primary or secondary Plan to address problem: We will follow-up with oncologist as outpatient. (6) Liver cirrhosis Current Visit: Yes Status: Acute Qualifiers: Hepatic cirrhosis type: unspecified hepatic cirrhosis Ascites presence: with ascites Qualified Code(s): K74.60 - Unspecified cirrhosis of liver; R18.8 - Other ascites Plan to address problem: Current will provide pain control also paracentesis both diagnostic and thera peutic. Plan will be transferred to [facility] for potential correction of underlying umbilical hernia in the face of large volume cirrhosis. (7) Umbilical hernia Current Visit: Yes Status: Acute Qualifiers: Obstruction and gangrene presence: without obstruction or gangrene Qualified Code(s): K42.9 - Umbilical hernia without obstruction or gangrene Plan to address problem: Transfer to [place] for evaluation of surgical erection. Patient continues to have persistent pain. Continue aggressive pain control aggressive volume hydration. History Interval history: Patient seen and examined, resting comfortable, awaiting paracentesis. Hospitalist Physical - Physical exam Narrative exam: General appearance: Present: no acute distress, well-nourished - EENT Eyes: PERRL, EOM intact ENT: hearing intact, clear oral mucosa Ears: bilateral: normal - Neck Neck: supple, normal ROM - Respiratory Respiratory effort: normal Respiratory: bilateral: CTA - Breasts Breasts: normal - Cardiovascular Rhythm: regular Heart Sounds: Present: S1 & S2. Absent: gallop, rub Extremities: pulses intact, No edema, normal color, Full ROM - Gastrointestinal General gastrointestinal: Present: soft, non-tender, distended, normal bowel sounds, other (Large volume ascites. Along with painful umbilical hernia.). Absent: hepatomegaly, splenomegaly, mass - Genitourinary Male genitourinary: normal - Integumentary Integumentary: clear, warm, dry - Musculoskeletal Musculoskeletal: 1, strength equal bilaterally - Neurologic Neurologic: moves all extremities - Psychiatric Psychiatric: memory intact, appropriate mood/affect, intact judgment & insight - Constitutional Vitals: Temp Pulse Resp BP Pulse Ox 98.7 F 94 H 21 129/89 99 08/17/20 11:40 08/17/20 11:40 08/17/20 11:40 08/17/20 11:40 08/17/20 11:40 General appearance: Present: no acute distress, well-nourished Results - Labs CBC & Chem 7: 08/15/20 07:10 08/15/20 07:10 Labs: Laboratory Last Values WBC 6.0 K/mm3 (4.5-11.0) 08/15/20 07:10 RBC 3.18 M/mm3 (3.65-5.03) L 08/15/20 07:10 Hgb 11.4 gm/dl (11.8-15.2) L 08/15/20 07:10 Hct 33.3 % (35.5-45.6) L 08/15/20 07:10 MCV 105 fl (84-94) H 08/15/20 07:10 MCH 36 pg (28-32) H 08/15/20 07:10 MCHC 34 % (32-34) 08/15/20 07:10 RDW 14.6 % (13.2-15.2) 08/15/20 07:10 Plt Count 73 K/mm3 (140-440) L 08/15/20 07:10 Lymph % (Auto) 9.5 % (13.4-35.0) L 08/15/20 07:10 [place] % (Auto) 15.8 % (0.0-7.3) H 08/15/20 07:10 Eos % (Auto) 3.4 % (0.0-4.3) 08/15/20 07:10 Baso % (Auto) 0.4 % (0.0-1.8) 08/15/20 07:10 Lymph # (Auto) 0.6 K/mm3 (1.2-5.4) L 08/15/20 07:10 [place] # (Auto) 1.0 K/mm3 (0.0-0.8) H 08/15/20 07:10 Eos # (Auto) 0.2 K/mm3 (0.0-0.4) 08/15/20 07:10 Baso # (Auto) 0.0 K/mm3 (0.0-0.1) 08/15/20 07:10 Add Manual Diff Complete 08/12/20 05:51 Total Counted 100 08/12/20 05:51 Seg Neutrophils % 70.9 % (40.0-70.0) H 08/15/20 07:10 Seg Neuts % (Manual) 78.0 % (40.0-70.0) H 08/12/20 05:51 Band Neutrophils % 0 % 08/12/20 05:51 Lymphocytes % (Manual) 12.0 % (13.4-35.0) L 08/12/20 05:51 Reactive Lymphs % (Man) 1.0 % 08/12/20 05:51 Monocytes % (Manual) 8.0 % (0.0-7.3) H 08/12/20 05:51 Eosinophils % (Manual) 1.0 % (0.0-4.3) 08/12/20 05:51 Basophils % (Manual) 0 % (0.0-1.8) 08/12/20 05:51 Metamyelocytes % 0 % 08/12/20 05:51 Myelocytes % 0 % 08/12/20 05:51 Promyelocytes % 0 % 08/12/20 05:51 Blast Cells % 0 % 08/12/20 05:51 Nucleated RBC % Not Reportable 08/12/20 05:51 Seg Neutrophils # 4.3 K/mm3 (1.8-7.7) 08/15/20 07:10 Seg Neutrophils # Man 4.2 K/mm3 (1.8-7.7) 08/12/20 05:51 Band Neutrophils # 0.0 K/mm3 08/12/20 05:51 Lymphocytes # (Manual) 0.6 K/mm3 (1.2-5.4) L 08/12/20 05:51 Abs React Lymphs (Man) 0.1 K/mm3 08/12/20 05:51 Monocytes # (Manual) 0.4 K/mm3 (0.0-0.8) 08/12/20 05:51 Eosinophils # (Manual) 0.1 K/mm3 (0.0-0.4) 08/12/20 05:51 Basophils # (Manual) 0.0 K/mm3 (0.0-0.1) 08/12/20 05:51 Metamyelocytes # 0.0 K/mm3 08/12/20 05:51 Myelocytes # 0.0 K/mm3 08/12/20 05:51 Promyelocytes # 0.0 K/mm3 08/12/20 05:51 Blast Cells # 0.0 K/mm3 08/12/20 05:51 WBC Morphology Not Reportable 08/12/20 05:51 Hypersegmented Neuts Not Reportable 08/12/20 05:51 Hyposegmented Neuts Not Reportable 08/12/20 05:51 Hypogranular Neuts Not Reportable 08/12/20 05:51 Smudge Cells Not Reportable 08/12/20 05:51 Toxic Granulation Not Reportable 08/12/20 05:51 Toxic Vacuolation Not Reportable 08/12/20 05:51 Dohle Bodies Not Reportable 08/12/20 05:51 Pelger-Huet Anomaly Not Reportable 08/12/20 05:51 Urmila Rods Not Reportable 08/12/20 05:51 Platelet Estimate Consistent w auto 08/12/20 05:51 Clumped Platelets Not Reportable 08/12/20 05:51 Plt Clumps, EDTA Not Reportable 08/12/20 05:51 Large Platelets Not Reportable 08/12/20 05:51 Giant Platelets Not Reportable 08/12/20 05:51 Platelet Satelliting Not Reportable 08/12/20 05:51 Plt Morphology Comment Not Reportable 08/12/20 05:51 RBC Morphology Not Reportable 08/12/20 05:51 Dimorphic RBCs Not Reportable 08/12/20 05:51 Polychromasia Not Reportable 08/12/20 05:51 Hypochromasia Not Reportable 08/12/20 05:51 Poikilocytosis Not Reportable 08/12/20 05:51 Anisocytosis 1+ 08/12/20 05:51 Microcytosis Not Reportable 08/12/20 05:51 Macrocytosis Not Reportable 08/12/20 05:51 Spherocytes Not Reportable 08/12/20 05:51 Pappenheimer Bodies Not Reportable 08/12/20 05:51 Sickle Cells Not Reportable 08/12/20 05:51 Target Cells Not Reportable 08/12/20 05:51 Tear Drop Cells Not Reportable 08/12/20 05:51 Ovalocytes Not Reportable 08/12/20 05:51 Helmet Cells Not Reportable 08/12/20 05:51 Leung-Gilberton Bodies Not Reportable 08/12/20 05:51 [place] Rings Not Reportable 08/12/20 05:51 Chuck Cells Not Reportable 08/12/20 05:51 Bite Cells Not Reportable 08/12/20 05:51 Crenated Cell Not Reportable 08/12/20 05:51 Elliptocytes Not Reportable 08/12/20 05:51 Acanthocytes (Spur) Not Reportable 08/12/20 05:51 Rouleaux Not Reportable 08/12/20 05:51 Hemoglobin C Crystals Not Reportable 08/12/20 05:51 Schistocytes Not Reportable 08/12/20 05:51 Malaria parasites Not Reportable 08/12/20 05:51 Ceferino Bodies Not Reportable 08/12/20 05:51 Hem Pathologist Commnt No 08/12/20 05:51 PT 19.6 Sec. (12.2-14.9) H 08/12/20 05:51 INR 1.64 (0.87-1.13) H 08/12/20 05:51 Sodium 129 mmol/L (137-145) L 08/15/20 07:10 Potassium 3.7 mmol/L (3.6-5.0) 08/15/20 07:10 Chloride 93.9 mmol/L (98-107) L 08/15/20 07:10 Carbon Dioxide 31 mmol/L (22-30) H 08/15/20 07:10 Anion Gap 8 mmol/L 08/15/20 07:10 BUN 12 mg/dL (9-20) 08/15/20 07:10 Creatinine 1.1 mg/dL (0.8-1.3) 08/15/20 07:10 Estimated GFR > 60 ml/min 08/15/20 07:10 BUN/Creatinine Ratio 11 % 08/15/20 07:10 Glucose 100 mg/dL (75-100) 08/15/20 07:10 Calcium 7.1 mg/dL (8.4-10.2) L 08/15/20 07:10 Total Bilirubin 2.90 mg/dL (0.1-1.2) H 08/11/20 17:44 AST 47 units/L (5-40) H 08/11/20 17:44 ALT 16 units/L (7-56) 08/11/20 17:44 Alkaline Phosphatase 73 units/L (35-129) 08/11/20 17:44 Total Protein 8.8 g/dL (6.3-8.2) H 08/11/20 17:44 Albumin 2.7 g/dL (3.9-5) L 08/11/20 17:44 Albumin/Globulin Ratio 0.4 % 08/11/20 17:44 Lipase 15 units/L (13-60) 08/11/20 17:44 Mabry/IV: Voiding Method Toilet IV Catheter Type [Left Peripheral IV Antecubital] Active Medications - Current Medications Current Medications: Generic Name Dose Route Start Last Admin Trade Name Freq PRN Reason Stop Dose Admin Acetaminophen 650 mg 08/11/20 23:09 Tylenol PO Q4H PRN Pain MILD(1-3)/Fever >100.5/HURTADO Magnesium Hydroxide 30 ml 08/11/20 23:09 Milk Of Magnesia PO Q4H PRN Constipation Morphine Sulfate 3 mg 08/14/20 17:44 08/17/20 07:41 Morphine IV 3 mg Q4H PRN Administration Pain , Severe (7-10) Ondansetron HCl 4 mg 08/11/20 23:09 Zofran IV Q8H PRN Nausea And Vomiting Sodium Chloride 10 ml 08/12/20 10:00 08/16/20 22:17 Sodium Chloride Flush Syringe 10 Ml IV Not Given BID IMANI Sodium Chloride 10 ml 08/11/20 23:09 Sodium Chloride Flush Syringe 10 Ml IV PRN PRN LINE FLUSH
--- NOTE | 2020-08-17 12:15 | Discharge Summary ---
Providers - Providers Date of Admission: 08/11/20 21:57 Attending physician: ESTHELA CHAPA MD 08/11/20 21:56 Consult to Physician [CONS] Routine Comment: Consulting Provider: DORI BRITO Physician Instructions: Reason For Exam: umb hernia 08/12/20 05:14 Consult to Interventional Radiology [CONS] Routine Consulting Provider: PIOTR ONEILL Reason For Exam: Large volume ascites-pls evaluate for paracentesis Primary care physician: MEDICAL TECHNOLOGIST CHEMISTRY Hospitalization Reason for admission: RECURRENT PARACENTESIS Condition: Stable Hospital course: 59-year-old male with known history of hypertension, COPD, coronary artery disease, atrial fibrillation, history of liver cancer and liver cirrhosis presenting to the emergency room today complaining of abdominal pain. He has not been able to tolerate p.o. intake. He has had some patient nausea but no vomiting. He denies any diarrhea, no fever or chills, no chest pain or blanca rtness of breath. Abdominal pain is more in the periumbilical area where he has an umbilical hernia. Pain is about 10/10 in severity. Pain is more upon activity and feels better while resting. Work-up in the emergency room today reveals a hypokalemia of 2.[address] of the abdomen and pelvis was significant for: 1. 3.9 x 3.2 cm exophytic enhancing lesion at the dome of the liver with a background of cirrhosis likely represents malignancy, hepatocellular carcinoma leads the differential. Additionally wispy fat stranding of the omentum in the upper abdomen is concerning for peritoneal carcinomatosis. Left inguinal lymph node measures 1.5 cm in short axis. 2. Large umbilical hernia containing ascitic fluid. 3. Large volume ascites. 4. Remote bilateral rib trauma. Patient has been asked admitted for possible paracentesis and possible evaluation of umbilical hernia by general surgeon. General surgeon on-call has been consulted by the ER physician. Patient has accumulated ascites rather quickly after large-volume paracentesis on 2019. Plan would be additional paracentesis and transfer to [facility] for surgical intervention of hernia and abdominal pain. 08/17: Discussed with surgeon today, recommends patient should be discharge and follow with a blood bank specialist. This has been explained to the patient. He wants to go to [place] today and understand that the Transfer process is bed dependant. Following discussion, since he is clincially stable. Tolerating diet, without significant pain following paracentesis, he would rather be discharged and fo llow at [place]. Per surgeon, no Bowel incerCaton noted - Patient Problems (1) Abdominal pain Current Visit: Yes Status: Acute Qualifiers: Abdominal location: periumbilical Qualified Code(s): R10.33 - Periumbilical pain Plan to address problem: Patient again ascites has accumulated rather quickly from the to the . Abdominal hernia also has become more painful. Plan would have another paracentesis today and attempt to transfer to [place] for surgical services that can perform surgery on umbilical hernia with ongoing ascites. (2) Ascites Current Visit: Yes Status: Acute Qualifiers: Ascites type: due to alcoholic cirrhosis Qualified Code(s): K70.31 - Alcoholic cirrhosis of liver with ascites Plan to address problem: Large volume ascites status post significant paracentesis. Patient symptoms have improved significantly. Plan transfer to surgery at [place] for correction of umbilical hernia. Will discuss with surgery if patient is a candidate for discharge after another paracentesis and follow-up outpatient. (3) Full code status Current Visit: Yes Status: Acute (4) Hypokalemia Current Visit: Yes Status: Acute Plan to address problem: Corrected from 2.9-3.7. Will follow electrolytes. Correct potassium today IV. (5) Liver cancer Current Visit: Yes Status: Acute Qualifiers: Liver malignancy type: unspecified liver malignancy Qualified Code(s): C22.9 - Malignant neoplasm of liver, not specified as primary or secondary Plan to address problem: We will follow-up with oncologist as outpatient. (6) Liver cirrhosis Current Visit: Yes Status: Acute Qualifiers: Hepatic cirrhosis type: unspecified hepatic cirrhosis Ascites presence: with ascites Qualified Code(s): K74.60 - Unspecified cirrhosis of liver; R18.8 - Other ascites Plan to address problem: Current will provide pain control also paracentesis both diagnostic and therapeutic. Plan will be transferred to [facility] for potential correction of underlying umbilical hernia in the face of large volume cirrhosis. (7) Umbilical hernia Current Visit: Yes Status: Acute Qualifiers: Obstruction and gangrene presence: without obstruction or gangrene Qualified Code(s): K42.9 - Umbilical hernia without obstruction or gangrene Plan to address problem: Transfer to [place] for evaluation of surgical erection. Patient continues to have persistent pain. Continue aggressive pain control aggressive volume hydration. 8) Thrombocytopenia Disposition: DC-01 TO HOME OR SELFCARE Time spent for discharge: 35 mins Core Measure Documentation - Palliative Care Palliative Care/ Comfort Measures: Not Applicable - Core Measures Any of the following diagnoses?: none Exam - Physical Exam Narrative exam: General appearance: Present: no acute distress, well-nourished - EENT Eyes: PERRL, EOM intact ENT: hearing intact, clear oral mucosa Ears: bilateral: normal - Neck Neck: supple, normal ROM - Respiratory Respiratory effort: normal Respiratory: bilateral: CTA - Breasts Breasts: normal - Cardiovascular Rhythm: regular Heart Sounds: Present: S1 & S2. Absent: gallop, rub Extremities: pulses intact, No edema, normal color, Full ROM - Gastrointestinal General gastrointestinal: Present: soft, non-tender, distended, normal bowel sounds, other (Large volume ascites. Along with painful umbilical hernia.). Absent: hepatomegaly, splenomegaly, mass - Genitourinary Male genitourinary: normal - Integumentary Integumentary: clear, warm, dry - Musculoskeletal Musculoskeletal: 1, strength equal bilaterally - Neurologic Neurologic: moves all extremities - Psychiatric Psychiatric: memory intact, appropriate mood/affect, intact judgment & insight - Constitutional Vitals: Temp Pulse Resp BP Pulse Ox 98.7 F 94 H 21 129/89 99 08/17/20 11:40 08/17/20 11:40 08/17/20 11:40 08/17/20 11:40 08/17/20 11:40 Plan Activity: advance as tolerated, fall precautions Diet: low fat Special Instructions: record daily weights, record daily BP diary Additional Instructions: Follow with surgery and at [place] for possible Hepatology evaluation Follow up with: PRIMARY CARE, [Primary Care Provider] - 7 Days Prescriptions: oxyCODONE [roxiCODONE] 5 mg PO Q6HR PRN #10 tablet PRN Reason: Pain
[2020-08-17] MEDS ORDERED: FUROSEMIDE 40 MG/4 ML INJ IV NR (12:16)
== END 2020-08-17 14:19 | disposition home or self-care (01) ==
LOC: ED 16:18 → 3B-SURG 21:57
PROVIDERS: ADMIT Internal Medicine Geriatric Medicine; ATTEND Internal Medicine
DX: R18.8 Other ascites (principal); C22.9 Malignant neoplasm of liver, not specified as primary or secondary; I11.0 Hypertensive heart disease with heart failure; I50.9 Heart failure, unspecified; E87.6 Hypokalemia; J44.9 Chronic obstructive pulmonary disease, unspecified; I25.10 Atherosclerotic heart disease of native coronary artery without angina pectoris; I48.91 Unspecified atrial fibrillation; R00.0 Tachycardia, unspecified; K42.9 Umbilical hernia without obstruction or gangrene; D69.6 Thrombocytopenia, unspecified; R16.0 Hepatomegaly, not elsewhere classified; K74.60 Unspecified cirrhosis of liver; Z98.890 Other specified postprocedural states; Z87.891 Personal history of nicotine dependence; Z79.82 Long term (current) use of aspirin; Z79.899 Other long term (current) drug therapy
CPT/HCPCS: 36415; 49083; 74177; 80048; 80053; 83690; 85025; 85610; 87116; 88112; 88305; 88341; 88342; 93005; 96361; 96365; 96366; 96375; 96376; 99291; 99406; G0378; J1170; J1940; J2270; J2405; J3010; J3480; J7030; Q9967; 85007; 90686

== ENCOUNTER 2021-05-14 16:39 | Emergency (ER) | payer MEDICARE ==
--- NOTE | 2021-05-14 16:52 | Emergency Department Report ---
ED CPR HPI - General Chief Complaint: Cardiac Arrest/CPR Stated Complaint: CARDIAC ARREST Time Seen by Provider: 05/14/21 16:52 Source: EMS (Verbal report received from emergency medical services. EMS documentation not available at time of chart dictation ), RN notes reviewed, old records reviewed Mode of arrival: Stretcher Limitations: Altered Mental Status, Physical Limitation - History of Present Illness Initial Comments: The patient is a 60-year-old gentleman. His past medical history includes COPD, cirrhosis, presumed liver cancer, and atrial fibrillation. He is brought to the hospital by emergency medical services as an [id number] nontraumatic cardiac arrest. Patient arrived intubated, with a GCS of 3T, receiving active CPR. History obtained entirely from EMS. EMS states the patient was last seen normal at 12:00 PM today. EMS reports that the patient was found unresponsive at home. It is not known if family started CPR. Upon EMS arrival, the patient was not breathing, and was pulseless without shockable rhythm. EMS placed endotracheal tube in the patient's oropharynx, intubated the patient. Patient started on high-quality CPR, had a right lower extremity IO line placed, given dextrose for hypoglycemia and standard ACS medications, including epinephrine x2. EMS estimates 30 minutes elapsed from their first medical contacts to arrival in this emergency room. In that 30 minutes, the patient is pulseless, without shockable rhythm, and without signs of life. Upon arrival to this emergency room, pupils are midpoint, do not react to light. There are no pulses. Rhythm is asystole. Given prolonged downtime, medical futility, nonshockable rhythm, very poor medical prognosis, resuscitative efforts are terminated. At the moment, the patient is not accompanied by friends or family at this time for collateral information or additional history. MD Complaint: found unresponsive -: unknown Place: home Initial Findings in the Field: no pulse Treatments Prior to Arrival: intubation, chest compressions, epinephrine mgs #, glucose - Related Data Home Medications Medication Instructions Recorded Confirmed Last Taken Aspirin 81 mg PO DAILY 10/01/19 08/11/20 08/11/20 Furosemide [Lasix TAB] 40 mg PO BID 08/11/20 08/11/20 08/11/20 Potassium Chloride 10 meq PO BID 08/11/20 08/11/20 08/11/20 Varenicline(Nf) [Chantix (Nf)] 0.5 mg PO BID 08/11/20 08/11/20 08/11/20 Previous Rx's Medication Instructions Recorded Last Taken Type Apixaban [Eliquis] 5 mg PO Q12HR #60 tablet 10/04/19 08/09/20 Rx oxyCODONE [roxiCODONE] 5 mg PO Q6HR PRN #10 tablet 08/17/20 Unknown Rx Allergies Allergy/AdvReac Type Severity Reaction Status Date / Time No Known Allergies Allergy Verified 10/01/19 13:39 ED Review of Systems ROS: Stated complaint: CARDIAC ARREST Other details as noted in HPI Comment: Unobtainable due to pts medical conditions ED Past Medical Hx - Past Medical History Hx Hypertension: Yes Hx Heart Attack/AMI: Yes Hx Congestive Heart Failure: Yes Hx Diabetes: No Hx Pulmonary Embolism: No Hx Sickle Cell Disease: No Hx Asthma: No Hx COPD: Yes Hx Tuberculosis: No Hx HIV: No Additional medical history: afib. MVP - Surgical History Hx Open Heart Surgery: Yes Additional Surgical History: heart valve replacement - Social History Smoking Status: Former Smoker Substance Use Type: None - Medications Home Medications: Home Medications Medication Instructions Recorded Confirmed Last Taken Type Aspirin 81 mg PO DAILY 10/01/19 08/11/20 08/11/20 History Apixaban [Eliquis] 5 mg PO Q12HR #60 tablet 10/04/19 08/11/20 08/09/20 Rx Furosemide [Lasix TAB] 40 mg PO BID 08/11/20 08/11/20 08/11/20 History Potassium Chloride 10 meq PO BID 08/11/20 08/11/20 08/11/20 History Varenicline(Nf) [Chantix (Nf)] 0.5 mg PO BID 08/11/20 08/11/20 08/11/20 History oxyCODONE [roxiCODONE] 5 mg PO Q6HR PRN #10 tablet 08/17/20 Unknown Rx ED Physical Exam - General Limitations: Altered Mental Status, Physical Limitation General appearance: other (Patient nonverbal, intubated, GCS of 3T) - Head Head exam: Present: atraumatic, normocephalic - Eye Eye exam: Present: normal appearance, other (Pupils midpoint and do not react to light) - ENT ENT exam: Present: normal exam, normal orophraynx, normal external ear exam, other (Endotracheal tube noted in the oropharynx) - Neck Neck exam: Present: normal inspection - Respiratory Respiratory exam: Present: other (Patient is not breathing) - Cardiovascular Cardiovascular Exam: Present: other (The patient is pulseless) - GI/Abdominal GI/Abdominal exam: Present: distended, hernia - Rectal Rectal exam: Present: deferred - Extremities Exam Extremities exam: Present: normal inspection, pedal edema, other (There is an IO line noted in the right lower extremity) - Back Exam Back exam: Present: normal inspection - Neurological Exam Neurological exam: Present: altered (Nonverbal, GCS of 3T) - Skin Skin exam: Present: warm, dry, intact, normal color. Absent: rash ED Medical Decision Making - Medical Decision Making Differential diagnosis, including but not limited to: Intracranial hemorrhage, retroperitoneal hemorrhage, bacteremia, viremia, pneumonia, urinary tract infection, pulmonary embolism, acute coronary syndrome Critical care attestation.: If time is entered above; I have spent that time in minutes in the direct care of this critically ill patient, excluding procedure time. ED Disposition Clinical Impression: Cardiac arrest Disposition: DC-20 Is pt being admited?: No Does the pt Need Aspirin: No Condition: Undetermined
== END 2021-05-14 20:53 ==
LOC: ED 16:39
DX: I46.9 Cardiac arrest, cause unspecified (principal); I11.0 Hypertensive heart disease with heart failure; I50.9 Heart failure, unspecified; I25.2 Old myocardial infarction; J44.9 Chronic obstructive pulmonary disease, unspecified; I48.91 Unspecified atrial fibrillation; Z87.891 Personal history of nicotine dependence; Z98.890 Other specified postprocedural states; Z79.899 Other long term (current) drug therapy
CPT/HCPCS: 92950